=== PATIENT | female | born 1940 | race Caucasian/White ===

== ENCOUNTER 2020-08-07 08:58 | Inpatient (IN) ==
[2020-08-07] MEDS ORDERED: NORMAL SALINE 1,000 ML IV ONE ×2 (09:21→10:46)
[2020-08-07 09:42] LABS: Hematocrit 35.1 % (37.0-47.0); Hemoglobin 12.2 gm/dL (12.5-16.0); Mean Cell Volume 80.1 fl (78-100); Mean Corpuscular Hemoglobin 27.9 pg (27-31); Mean Corpuscular Hgb Conc 34.8 g/dl (32-36); Mean Platelet Volume 8.3 fl (8-12.5); Neutrophil # 8.8 K/mm3 (1.3-6.0); Neutrophil % 78.3 % (42-75.0); Platelet Count 340 K/mm3 (150-450); Red Blood Count 4.38 M/mm3 (4.2-5.4); Red Cell Distribution Width 13.3 % (11.5-14.0); White Blood Count 11.2 K/mm3 (4.0-10.5)
[2020-08-07 10:01] LABS: Urine Appearance Clear (CLEAR); Urine Bilirubin Negative (NEGATIVE); Urine Blood 5 /ul (NEGATIVE); Urine Color Yellow; Urine Ketone Negative (NEGATIVE); Urine Nitrite Negative (NEGATIVE); Urine Protein 30 mg/dL (NEGATIVE); Urine Specific Gravity 1.015 SP.GR. (1.005-1.010); Urine Urobilinogen Normal (NORMAL); Urine pH 7.5 pH (5.0-7.0)
[2020-08-07 10:02] LABS: Urine Bacteria None Seen; Urine RBC None Seen /hpf (0-5); Urine WBC None Seen /hpf (0-5)
[2020-08-07 10:02] LABS: Troponin I 0.021 ng/mL (0.00-0.10)
[2020-08-07 10:07] LABS: Albumin * 3.3 gm/dl (3.4-5.0); BUN/Creatinine Ratio 12.9 (9.0-21.6); Bilirubin, Total 0.6 mg/dL (0.0-1.1); Ca. Corrected For Albumin 8.3 mg/dL (8.4-10.2); Calcium * 8.1 mg/dL (7.9-10.9); Carbon Dioxide 30.3 mmol/L (24-32.6); TSH * 1.206 uIU/mL (0.358-3.74); Total Protein 7.5 gm/dL (6.2-8.2)
[2020-08-07 10:15] LABS: Anion Gap 11.2 mmol/L (6.8-13.8)
[2020-08-07 10:21] LABS: Potassium 2.5 mmol/L (3.4-4.6)
--- NOTE | 2020-08-07 10:59 | ERNOTE ---
Medical Problem HPI - Narrative Date of Service: 08/07/20 - General Chief Complaint: General Assessment Time Seen by Provider: 08/07/20 09:13 Source: patient Exam Limitations: dementia - Immun/Allergies/Home Medications Immunizations: IMMUNIZATION HX Immunizations Up to Date Yes History of Influenza Vaccine Yes Hx Pneumococcal Vaccination Yes Allergies/Adverse Reactions: Allergies No Known Allergies Allergy (Verified 08/07/20 09:03) Home Medications: HOME MEDICATIONS omeprazole magnesium 20 mg capsule,delayed release 40 mg PO DAILY cap 10/07/18 [Last Taken Unknown] potassium chloride 10 mEq tablet,extended release 20 meq PO TID tab 10/07/18 [Last Taken Unknown] aspirin 81 mg tablet,delayed release 81 mg PO DAILY 10/13/18 [Last Taken Unknown] donepezil 5 mg tablet 5 mg PO DAILY #30 tab 01/13/19 [Last Taken Unknown] hydrochlorothiazide 25 mg tablet 25 mg PO DAILY #30 tab 01/13/19 [Last Taken Unknown] furosemide 40 mg tablet 40 mg PO DAILY PRN #90 tab 01/28/20 [Last Taken Unknown] amlodipine 10 mg tablet See Rx Instructions .ROUTE .COMPLEX #30 tab 07/14/20 [Last Taken Unknown] - History of Present History Narrative: Patient has known dementia which complaints Hx. Brought in for EMS for generalized weakness. Apparently rolled out of bed and could not get up. No head injury or trauma. She relats low back pain that is always there. Denies any other new or acute pains. EMS felt she was dehydrated and initiated IV fluids. Timing: constant Severity: moderate Modifying Factors - (Improves): Present: other - nothing Modifying Factors - (Worsens): Present: other - nothing Review of Systems - Narrative Narrative: ROS unobtainable in entirety due to dementia Medical History (Last Reviewed 08/07/20 @ 10:55 by Farhad Burns MD) Vertigo, post-stroke (Resolved) Onset Date: Unknown Urinary frequency (Acute) Onset Date: Unknown Stress due to illness of family member (Acute) Onset Date: Unknown Right knee pain (Chronic) Onset Date: Unknown Neurogenic bladder (Acute) Onset Date: Unknown Incomplete bladder emptying (Acute) Onset Date: Unknown Hypertension (Chronic) Onset Date: Unknown Hyperlipidemia (Chronic) Onset Date: Unknown Hyperglycemia (Acute) Onset Date: Unknown Heart murmur (Acute) Onset Date: Unknown Goiter (Acute) Onset Date: Unknown GERD (gastroesophageal reflux disease) (Chronic) Onset Date: Unknown Fatigue (Acute) Onset Date: Unknown 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) Onset Date: Unknown Left CVA (cerebral vascular accident) (Resolved) Onset Date: Unknown Chest wall pain (Acute) Onset Date: Unknown Morales's esophagus (Acute) Onset Date: Unknown Asthma (Chronic) Onset Date: Unknown Herpes zoster Onset Date: Unknown Surgical History: Surgical History (Last Reviewed 08/07/20 @ 10:55 by Farhad Burns MD) Core biopsy left breast Onset Date: Unknown History of bladder suspension procedure Onset Date: ~1999 and sling History of esophagogastroduodenoscopy (EGD) Onset Date: ~09/11/05 Hx of section Onset Date: Unknown Hx of colonoscopy Onset Date: Unknown 12/29/09; 03/22/15 Hx of hysterectomy Onset Date: ~1974 Hx of mastectomy Onset Date: ~12/10/12 Left Hx of thyroidectomy Onset Date: ~1987 Plication of bladder Onset Date: Unknown Family History: Family History (Last Reviewed 08/07/20 @ 10:55 by Farhad Burns MD) Mother Hypertension Thyroid disorder Colon cancer Grandmother Colon cancer Maternal Uncle Carcinoma in situ Social History: (Last Reviewed 08/07/20 @ 10:55 by Farhad Burns MD) Social History: adopted: No foster care: No senior care: No Marital status: lives independently: No household members: spouse caregiver/support person: No current occupational status: retired Highest level of school completed/degree received: high school graduate Service: No Tobacco: Smoking Status: Never smoker Alcohol: alcohol intake: former details: 1-2 times/yr Substance Use: substance use type: does not use Dietary Habits: caffeine: Yes Personal Safety: victim of physical abuse: No victim of emotional abuse: No victim of sexual abuse: No Physical Exam - Physical Exam General Appearance: Present: alert, no apparent distress Head Exam: Present: normal inspection, no evidence of injury. Absent: Wolf's Sign, raccoon eyes Eye Exam: Normal inspection: bilateral, PERRL: bilateral Ears, Nose, Throat: Present: dry mucous membranes Neck: Present: normal inspection. Absent: tender posterior midline Respiratory: Present: no respiratory distress, normal breath sounds, no accessory muscle use, lungs clear Cardiovascular/Chest: Present: regular rate, rhythm, normal peripheral pulses Gastrointestinal/Abdominal: Present: normal bowel sounds, nontender, nondistended, soft Back Exam: Present: other - difficult exam but no clear CVA tendenress Extremity Exam: Present: other - no deformity Neurological Exam: Present: alert, other - generalized weakness noted, no acute unilateral focal motor or sensory deficits Skin Exam: Present: normal color, warm/dry Progress - Results and Orders Patient's Lab Results:: I have reviewed the patient's lab results. - Vital Signs Patient's Vital Signs:: I have reviewed the patient's vital signs. Vital Signs: Vital Signs 08/07/20 08:58 08/07/20 10:15 Temperature 36.8 C Pulse Rate 102 H 98 Respiratory Rate 16 18 Blood Pressure 151/58 H 138/53 O2 Sat by Pulse Oximetry 95 96 - EKG EKG #1 EKG read: Interp. by me EKG Comments: Sinus tachycardia rate 100. Non-specific ST/T wave changes, no STEMI noted - X-Ray X-Ray #1 X-Ray: chest Interpretation: Interp. by me X-ray Comments: No real time radiology reads. I personally reviewed CXR image, no STMI noted - Progress/Reassessment Chief Complaint: General Assessment Progress Note-Subjective: 08/07/20 10:56 Patient has significantly low potassium and magnesium which is likely causing her generalized weakness. She is dehydrated. IV Fluids given, IV potassium and IV Magnesium. I do not see an indication for head CT at this time. Discussed with Dr Hayward who will admit. Departure Clinical Impression: Generalized weakness, Hypomagnesemia, Hypokalemia, Dehydration - Departure Disposition: Still a patient Condition: Stable Referrals: Ginette Hayward DO [Primary Care Provider] -
[2020-08-07] MEDS ORDERED: MAGNESIUM SULFATE 8 MEQ in DEXTROSE 5 % IN WATER 50 ML IV ONE ×2 (11:00)
[2020-08-07] MEDS: POTASSIUM CHLORIDE IN WATER 100 ML IV SCH ×7 (11:03→23:25)
--- NOTE | 2020-08-07 13:24 | HP ---
Chief Complaint - Chief Complaint Date of Service: 08/07/20 Time of Service: 13:24 Chief Complaint: weakness History of Present Illness: Patient with history of dementia presents to the ER after having some weakness at home. Her reports her weakness has been slowly progressing over the last few months. He denies recent illness or medication changes. He reports that she has been taking her prescribed potassium. Work-up in the ER shows hypokalemia with a potassium of 2.5, and hypomagnesemia with a magnesium of 1.0. Her glucose is high at 207, but she does not have a history of diabetes. She is admitted for electrolyte replacement and physical therapy evaluation. Medical History (Last Reviewed 08/07/20 @ 10:55 by Farhad Burns MD) Vertigo, post-stroke (Resolved) Onset Date: Unknown Urinary frequency (Acute) Onset Date: Unknown Stress due to illness of family member (Acute) Onset Date: Unknown Right knee pain (Chronic) Onset Date: Unknown Neurogenic bladder (Acute) Onset Date: Unknown Incomplete bladder emptying (Acute) Onset Date: Unknown Hypertension (Chronic) Onset Date: Unknown Hyperlipidemia (Chronic) Onset Date: Unknown Hyperglycemia (Acute) Onset Date: Unknown Heart murmur (Acute) Onset Date: Unknown Goiter (Acute) Onset Date: Unknown GERD (gastroesophageal reflux disease) (Chronic) Onset Date: Unknown Fatigue (Acute) Onset Date: Unknown 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) Onset Date: Unknown Left CVA (cerebral vascular accident) (Resolved) Onset Date: Unknown Chest wall pain (Acute) Onset Date: Unknown Morales's esophagus (Acute) Onset Date: Unknown Asthma (Chronic) Onset Date: Unknown Herpes zoster Onset Date: Unknown Surgical History: Surgical History (Last Reviewed 08/07/20 @ 10:55 by Farhad Burns MD) Core biopsy left breast Onset Date: Unknown History of bladder suspension procedure Onset Date: ~1999 and sling History of esophagogastroduodenoscopy (EGD) Onset Date: ~09/11/05 Hx of section Onset Date: Unknown Hx of colonoscopy Onset Date: Unknown 12/29/09; 03/22/15 Hx of hysterectomy Onset Date: ~1974 Hx of mastectomy Onset Date: ~12/10/12 Left Hx of thyroidectomy Onset Date: ~1987 Plication of bladder Onset Date: Unknown Family History: Family History (Last Reviewed 08/07/20 @ 10:55 by Farhad Burns MD) Mother Hypertension Thyroid disorder Colon cancer Grandmother Colon cancer Maternal Uncle Carcinoma in situ Social History: (Last Reviewed 08/07/20 @ 10:55 by Farhad Burns MD) Social History: adopted: No foster care: No alf: No Marital status: lives independently: No household members: spouse caregiver/support person: No current occupational status: retired Highest level of school completed/degree received: high school graduate Service: No Tobacco: Smoking Status: Never smoker Alcohol: alcohol intake: former details: 1-2 times/yr Substance Use: substance use type: does not use Dietary Habits: caffeine: Yes Personal Safety: victim of physical abuse: No victim of emotional abuse: No victim of sexual abuse: No Review Of Systems (GEN) - Review of Systems Generalized/Overall Review: Present: No Symptoms Reported, Weakness - Per . Absent: Fever Respiratory: Absent: Shortness of Breath Cardiac: Absent: Chest Pain, Edema Abdominal: Present: No Symptoms Reported Genitourinary: Present: No Symptoms Reported Musculoskeletal: Present: No Symptoms Reported Skin: Present: No Symptoms Reported Immunizations: IMMUNIZATION HX Immunizations Up to Date Yes History of Influenza Vaccine Yes Hx Pneumococcal Vaccination Yes Allergies/Adverse Reactions: Allergies Allergy/AdvReac Type Severity Reaction Status Date / Time No Known Allergies Allergy Verified 08/07/20 09:03 Home Medications: HOME MEDICATIONS omeprazole magnesium 20 mg capsule,delayed release 40 mg PO DAILY cap 10/07/18 [Last Taken Unknown] potassium chloride 10 mEq tablet,extended release 20 meq PO TID tab 10/07/18 [Last Taken Unknown] aspirin 81 mg tablet,delayed release 81 mg PO DAILY 10/13/18 [Last Taken Unknown] amlodipine 10 mg tablet See Rx Instructions .ROUTE .COMPLEX #30 tab 07/14/20 [Last Taken Unknown] Exam - Exam Vital Signs: Vital Signs - Last Taken Temp 36.6 C 08/07/20 12:47 Pulse 95 08/07/20 12:47 Resp 23 H 08/07/20 12:47 BP 131/52 08/07/20 12:47 Pulse Ox 96 08/07/20 12:47 Constitutional: Present: Alert, Cooperative, No distress, Elderly. Absent: Oriented x3 - Oriented to self Respiratory: Present: normal breath sounds, no respiratory distress Cardiovascular/Chest: Present: regular rate, rhythm Abdomen: Present: soft Extremity: Absent: lower extremity edema Eye contact: Present: cooperative, good eye contact Diagnostic Studies: Abnormal Lab Results 08/07/20 08/07/20 08/07/20 Range/Units 09:11 09:23 09:23 WBC 11.2 H (4.0-10.5) K/mm3 Hgb 12.2 L (12.5-16.0) gm/dL Hct 35.1 L (37.0-47.0) % Immature Gran # (Auto) 0.04 H (0.000-0.0310) K/mm3 Neutrophils % 78.3 H (42-75.0) % Lymphocytes % 14.3 L (20-51) % Neutrophils # 8.8 H (1.3-6.0) K/mm3 Potassium 2.5 L (3.4-4.6) mmol/L Chloride 95 L (97-106) mmol/L Random Glucose 207 H (70-110) mg/dL Calcium Adj for Albumin 8.3 L (8.4-10.2) mg/dL Magnesium (1.2-2.8) mg/dL Albumin 3.3 L (3.4-5.0) gm/dl Urine Protein 30 H (NEGATIVE) mg/dL Urine Blood 5 H (NEGATIVE) /ul 08/07/20 Range/Units 09:23 WBC (4.0-10.5) K/mm3 Hgb (12.5-16.0) gm/dL Hct (37.0-47.0) % Immature Gran # (Auto) (0.000-0.0310) K/mm3 Neutrophils % (42-75.0) % Lymphocytes % (20-51) % Neutrophils # (1.3-6.0) K/mm3 Potassium (3.4-4.6) mmol/L Chloride (97-106) mmol/L Random Glucose (70-110) mg/dL Calcium Adj for Albumin (8.4-10.2) mg/dL Magnesium 1.0 L (1.2-2.8) mg/dL Albumin (3.4-5.0) gm/dl Urine Protein (NEGATIVE) mg/dL Urine Blood (NEGATIVE) /ul Laboratory Results WBC 11.2 K/mm3 (4.0-10.5) H 08/07/20 09:23 RBC 4.38 M/mm3 (4.2-5.4) 08/07/20 09:23 Hgb 12.2 gm/dL (12.5-16.0) L 08/07/20 09:23 Hct 35.1 % (37.0-47.0) L 08/07/20 09:23 MCV 80.1 fl (78-100) 08/07/20 09:23 MCH 27.9 pg (27-31) 08/07/20 09: MCHC 34.8 g/dl (32-36) 08/07/20 09: RDW 13.3 % (11.5-14.0) 08/07/20 09: Plt Count 340 K/mm3 (150-450) 08/07/20 09: MPV 8.3 fl (8-12.5) 08/07/20 09:23 Immature Gran % (Auto) 0.40 % (0.001-0.429) 08/07/20 09: Immature Gran # (Auto) 0.04 K/mm3 (0.000-0.0310) H 08/07/20 09:23 Neutrophils % 78.3 % (42-75.0) H 08/07/20 09:23 Lymphocytes % 14.3 % (20-51) L 08/07/20 09: Monocytes % 6.4 % (0.0-9) 08/07/20 09: Eosinophils % 0.3 % (0.0-3.0) 08/07/20 09: Basophils % 0.3 % (0.0-1.0) 08/07/20 09: Nucleated RBC % 0.0 k/mm3 (0-1) 08/07/20 09: Neutrophils # 8.8 K/mm3 (1.3-6.0) H 08/07/20 09:23 Lymphocytes # 1.61 k/mm3 (1.5-3.5) 08/07/20 09: Monocytes # 0.7 k/mm3 (0.0-1.0) 08/07/20 09: Eosinophils # 0.0 k/mm3 (0.0-0.7) 08/07/20 09: Absolute Basophils 0.0 k/mm3 (0.0-0.1) 08/07/20 09:23 Sodium 134 mmol/L (132-142) 08/07/20 09:23 Plasma Sodium 136 mmol/L (130-142) 08/07/20 09:23 Potassium 2.5 mmol/L (3.4-4.6) L 08/07/20 09:23 Chloride 95 mmol/L (97-106) L 08/07/20 09:23 Carbon Dioxide 30.3 mmol/L (24-32.6) 08/07/20 09:23 Anion Gap 11.2 mmol/L (6.8-13.8) 08/07/20 09:23 BUN 8 mg/dL (3-23) 08/07/20 09:23 Creatinine 0.62 mg/dL (0.4-1.4) 08/07/20 09:23 Est GFR (Non-Af Amer) 98 mL/min (60-130) 08/07/20 09:23 BUN/Creatinine Ratio 12.9 (9.0-21.6) 08/07/20 09:23 Random Glucose 207 mg/dL (70-110) H 08/07/20 09:23 Lactic Acid, Venous 1.3 mmol/L (0.4-2.0) 08/07/20 09:23 Calcium 8.1 mg/dL (7.9-10.9) 08/07/20 09:23 Calcium Adj for Albumin 8.3 mg/dL (8.4-10.2) L 08/07/20 09:23 Magnesium 1.0 mg/dL (1.2-2.8) L 08/07/20 09:23 Total Bilirubin 0.6 mg/dL (0.0-1.1) 08/07/20 09:23 AST 20 U/L (0-48) 08/07/20 09:23 ALT 22 U/L (19-67) 08/07/20 09:23 Alkaline Phosphatase 99 U/L (50-170) 08/07/20 09:23 Ammonia Less than 17.0 mcmol/L (11-35) 08/07/20 09:23 Troponin I 0.021 ng/mL (0.00-0.10) 08/07/20 09:23 Total Protein 7.5 gm/dL (6.2-8.2) 02/07/21 09:23 Albumin 3.3 gm/dl (3.4-5.0) L 08/07/20 09:23 TSH 1.206 uIU/mL (0.358-3.74) 08/07/20 09:23 Urine Color Yellow 08/07/20 09:11 Urine Appearance Clear (CLEAR) 08/07/20 09:11 Urine pH 7.5 pH (5.0-7.0) 08/07/20 09:11 Ur Specific [place] 1.015 SP.GR. (1.005-1.010) 08/07/20 09:11 Urine Protein 30 mg/dL (NEGATIVE) H 08/07/20 09:11 Urine Glucose (UA) Negative mg/dL (NEGATIVE) 08/07/20 09:11 Urine Ketones Negative mg/dL (NEGATIVE) 08/07/20 09:11 Urine Blood 5 /ul (NEGATIVE) H 08/07/20 09:11 Urine Nitrate Negative (NEGATIVE) 08/07/20 09:11 Urine Bilirubin Negative mg/dl (NEGATIVE) 08/07/20 09:11 Urine Urobilinogen Normal EU/dl (NORMAL) 08/07/20 09:11 Ur Leukocyte Esterase Negative /ul (NEGATIVE) 08/07/20 09:11 Urine RBC None seen /hpf (0-5) 08/07/20 09:11 Urine WBC None seen /hpf (0-5) 08/07/20 09:11 Ur Epithelial Cells None seen /hpf (0-5) 08/07/20 09:11 Urine Bacteria None seen (NONE) 08/07/20 09:11 Urine Culture Comments No culture indicated 08/07/20 09:11 SARS-CoV-2 (PCR) Not detected (NotDetected) 08/07/20 10:32 Assessment/Plan - Narrative Narrative: Her denies recent illness or medication changes that could have prompted her electrolyte imbalance. However he is not clear on the actual medicines she takeshe gives her the medicines that come in the mail. Her only medication that has been renewed in the last 6 months has been her 10 mg of amlodipine. Potassium of 2.5 and magnesium of 1.0 on admission. Will administer IV potassium and magnesium and recheck in the morning. Physical therapy consult has been ordered to assess her ability to ambulate. He feels like she has been deteriorating over the last several months. She does have some moderate dementia. If he is unable to care for her at home, I recommend alf placement on discharge. - Assessment/Plan (1) Generalized weakness Problem: Acute (2) Hypomagnesemia Problem: Acute (3) Hypokalemia Problem: Acute (4) Moderate dementia Problem: Chronic (5) Hypertension Problem: Chronic (6) Hyperglycemia Problem: Acute (7) Heart murmur Problem: Acute (8) GERD (gastroesophageal reflux disease) Problem: Chronic (9) CVA (cerebral vascular accident) Problem: Resolved
[2020-08-07] MEDS: POTASSIUM CHLORIDE 20 MEQ TABLET.SA PO SCH (16:54)
[2020-08-07 18:55] LABS: Albumin * 2.8 gm/dl (3.4-5.0); BUN/Creatinine Ratio 9.4 (9.0-21.6); Bilirubin, Total 0.5 mg/dL (0.0-1.1); Ca. Corrected For Albumin 8.4 mg/dL (8.4-10.2); Calcium * 7.8 mg/dL (7.9-10.9); Carbon Dioxide 29.3 mmol/L (24-32.6); Total Protein 6.6 gm/dL (6.2-8.2)
[2020-08-07 19:04] LABS: Potassium 2.3 mmol/L (3.4-4.6)
[2020-08-07] MEDS ORDERED: MAGNESIUM SULFATE 4 MEQ/ML VIAL IV ONE (19:08)
[2020-08-07] MEDS ORDERED: MAGNESIUM SULFATE IV ONE (19:45)
[2020-08-07] MEDS ORDERED: WATER IV ONE (19:45)
[2020-08-07] MEDS ORDERED: MAGNESIUM SULFATE IN WATER IV ONE (20:10)
[2020-08-08] MEDS: POTASSIUM CHLORIDE IN WATER 100 ML IV SCH ×5 (00:53→12:22)
[2020-08-08 07:04] LABS: Albumin * 3.4 gm/dl (3.4-5.0); Anion Gap 12.5 mmol/L (6.8-13.8); BUN/Creatinine Ratio 5.3 (9.0-21.6); Bilirubin, Total 0.8 mg/dL (0.0-1.1); Ca. Corrected For Albumin 8.9 mg/dL (8.4-10.2); Calcium * 8.7 mg/dL (7.9-10.9); Carbon Dioxide 29.8 mmol/L (24-32.6); Magnesium 1.4 mg/dL (1.2-2.8); Total Protein 7.8 gm/dL (6.2-8.2)
[2020-08-08 07:15] LABS: Potassium 2.3 mmol/L (3.4-4.6)
[2020-08-08] MEDS: POTASSIUM CHLORIDE 20 MEQ TABLET.SA PO SCH ×2 (09:22→12:23)
[2020-08-08] MEDS: ASPIRIN 81 MG TABLET.DR PO SCH (09:22)
--- NOTE | 2020-08-08 10:30 | PN ---
Subjective - Date and Time Seen Date: 08/08/20 Time: 10:30 Subjective Narrative: She reports having some indigestion. Potassium still low this morning. She was up in the chair for my eval, and had eaten breakfast. Objective - Review of Systems Generalized/Overall Review: Reports: Weakness. Denies: Fever Respiratory: Denies: Shortness of Breath Cardiac: Denies: Chest Pain Abdominal: Reports: Other - indigestion Genitourinary Symptoms: Reports: No Symptoms Reported Musculoskeletal Complaints: Reports: No Symptoms Reported Neurological: Reports: No Symptoms Reported - Vitals Vitals: Last Vital Signs Temp 36.5 C 08/08/20 06:31 Pulse 104 H 08/08/20 06:31 Resp 16 08/08/20 06:31 BP 158/73 H 08/08/20 06:31 Pulse Ox 96 08/08/20 06:31 - Abnormal Lab Findings Abnormal Lab Findings: Abnormal Lab Results 08/07/20 08/07/20 08/08/20 Range/Units 09:23 18:39 06:22 Potassium 2.3 L* 2.3 L* (3.4-4.6) mmol/L Chloride 96 L (97-106) mmol/L BUN/Creatinine Ratio 5.3 L (9.0-21.6) Random Glucose 151 H 147 H (70-110) mg/dL Calcium 7.8 L (7.9-10.9) mg/dL Magnesium 1.0 L (1.2-2.8) mg/dL Albumin 2.8 L (3.4-5.0) gm/dl - Exam Constitutional: Present: Alert, Cooperative, Elderly Respiratory: Present: normal breath sounds, no respiratory distress Cardiovascular/Chest: Present: regular rate, rhythm Abdomen: Present: soft Extremity: Absent: lower extremity edema Appearance: Present: impaired insight Eye contact: Present: cooperative, good eye contact Assessment/Plan Plan Narrative: Potassium is still 2.3 after being given 120 mEq KCl via IV. Her magnesium was also low, which may be why it's been difficult to replace her potassium. Her magnesium is better this morning, at 1.4, so I anticipate her potassium will improve. She has dementia at baseline, and lives with her . They do not seem to know for sure which medicines she takes, only that she takes what comes in the mail. She denies recent vomiting or diarrhea. HCTZ was previously on her med list, but I have not filled that since 2019. Unclear source of her electrolyte abnormalities at this time. I anticipate similar problems will continue while she lives at home, and will need to discuss possible placement with her . He has called our office a few times for difficulty caring for her at home. Since her K+ is still low, she will need at least one additional night of hospitalization. - Problems/Diagnosis (1) Hypokalemia Problem: Acute (2) Generalized weakness Problem: Acute (3) Hypomagnesemia Problem: Acute (4) Moderate dementia Problem: Chronic (5) Hypertension Problem: Chronic (6) Hyperglycemia Problem: Acute (7) Heart murmur Problem: Acute (8) GERD (gastroesophageal reflux disease) Problem: Chronic (9) CVA (cerebral vascular accident) Problem: Resolved
[2020-08-08] MEDS ORDERED: CALCIUM CARBONATE 500 MG TAB.CHEW PO PRN (10:40)
[2020-08-08] MEDS: amLODIPine BESYLATE 10 MG TABLET PO SCH (13:35)
[2020-08-08] MEDS: PANTOPRAZOLE SODIUM 40 MG TABLET.EC PO SCH (13:36)
[2020-08-08 14:18] LABS: Anion Gap 12.5 mmol/L (6.8-13.8); BUN/Creatinine Ratio 12.7 (9.0-21.6); Calcium * 8.6 mg/dL (7.9-10.9); Carbon Dioxide 27.2 mmol/L (24-32.6); Estimated Creat Clear 48.3; Potassium 3.7 mmol/L (3.4-4.6)
[2020-08-09 06:48] LABS: Anion Gap 10.4 mmol/L (6.8-13.8); BUN/Creatinine Ratio 8.9 (9.0-21.6); Bilirubin, Total 0.6 mg/dL (0.0-1.1); Ca. Corrected For Albumin 8.7 mg/dL (8.4-10.2); Calcium * 8.2 mg/dL (7.9-10.9); Carbon Dioxide 28.8 mmol/L (24-32.6); Total Protein 6.9 gm/dL (6.2-8.2)
[2020-08-09 06:57] LABS: Potassium 2.2 mmol/L (3.4-4.6)
[2020-08-09] MEDS: PANTOPRAZOLE SODIUM 40 MG TABLET.EC PO SCH (06:58)
[2020-08-09] MEDS: POTASSIUM CHLORIDE IN WATER 100 ML IV SCH ×4 (07:22→11:06)
[2020-08-09 08:03] LABS: Hemoglobin A1C 6.7 % (3.80-5.60)
[2020-08-09] MEDS: amLODIPine BESYLATE 10 MG TABLET PO SCH (08:47)
[2020-08-09] MEDS: ENOXAPARIN SODIUM 40 MG/0.4 ML SYRG SC SCH (08:47)
[2020-08-09] MEDS: ASPIRIN 81 MG TABLET.DR PO SCH (08:47)
--- NOTE | 2020-08-09 08:58 | PN ---
Subjective - Date and Time Seen Date: 08/09/20 Time: 08:30 Subjective Narrative: Patient's potassium was 3.7 yesterday afternoon, but decreased to 2.2 this morning. She reports her indigestion is better. Objective - Review of Systems Generalized/Overall Review: Reports: Weakness Respiratory: Denies: Shortness of Breath Cardiac: Denies: Chest Pain Abdominal: Denies: Vomiting, Diarrhea Genitourinary Symptoms: Reports: No Symptoms Reported - Vitals Vitals: Last Vital Signs Temp 36.4 C 08/09/20 06:10 Pulse 110 H 08/09/20 08:47 Resp 18 08/09/20 06:10 BP 142/71 08/09/20 08:47 Pulse Ox 95 08/09/20 06:10 - Abnormal Lab Findings Abnormal Lab Findings: Abnormal Lab Results 08/08/20 08/09/20 08/09/20 Range/Units 13:59 06:15 06:15 Sodium 131 L (132-142) mmol/L Potassium 2.2 L* D (3.4-4.6) mmol/L Chloride 95 L 96 L (97-106) mmol/L BUN/Creatinine Ratio 8.9 L (9.0-21.6) Random Glucose 203 H D 138 H D (70-110) mg/dL Hemoglobin A1c 6.7 H (3.80-5.60) % Albumin 3.0 L (3.4-5.0) gm/dl - Exam Constitutional: Present: Alert, Cooperative, No distress, Elderly Respiratory: Present: normal breath sounds, no respiratory distress Cardiovascular/Chest: Present: regular rate, rhythm Abdomen: Present: Normal bowel sounds, distended Extremity: Absent: lower extremity edema Eye contact: Present: cooperative, good eye contact Assessment/Plan Plan Narrative: Patient's potassium improved to 3.7 yesterday afternoon, but again decreased to 2.2 this morning. Will again give an additional 40 mEq Kcl via IV. She has already received 120 mEq in the last 48 hours. will also increase her oral replacement to 40 mEq tid. She is not vomiting or having diarrhea, and does not use diuretics. Will check urine potassium-spot and 24 hour. Will recheck magnesium also. Her BP is controlled on 10 mg amlodipine, so I do not feel like she has hyperaldosteronism, but will check plasma aldosterone. - Problems/Diagnosis (1) Hypokalemia Problem: Acute (2) Generalized weakness Problem: Acute (3) Hypomagnesemia Problem: Acute (4) Moderate dementia Problem: Chronic (5) Hypertension Problem: Chronic (6) Hyperglycemia Problem: Acute (7) Heart murmur Problem: Acute (8) GERD (gastroesophageal reflux disease) Problem: Chronic (9) CVA (cerebral vascular accident) Problem: Resolved
[2020-08-09] MEDS: MAGNESIUM OXIDE 400 MG TABLET PO SCH (11:11)
[2020-08-09] MEDS: INSULIN LISPRO 100 UNITS/ML VIAL SC SCH ×3 (11:51→20:00)
[2020-08-09] MEDS: POTASSIUM CHLORIDE 20 MEQ TABLET.SA PO SCH ×2 (12:13→16:51)
[2020-08-09 17:54] LABS: Anion Gap 16.7 mmol/L (6.8-13.8); BUN/Creatinine Ratio 18.8 (9.0-21.6); Calcium * 9.1 mg/dL (7.9-10.9); Carbon Dioxide 24.8 mmol/L (24-32.6); Estimated Creat Clear 53.6; Potassium 3.5 mmol/L (3.4-4.6)
[2020-08-10 06:34] LABS: Albumin * 2.8 gm/dl (3.4-5.0); Anion Gap 9.7 mmol/L (6.8-13.8); BUN/Creatinine Ratio 13.1 (9.0-21.6); Bilirubin, Total 0.5 mg/dL (0.0-1.1); Ca. Corrected For Albumin 8.9 mg/dL (8.4-10.2); Calcium * 8.3 mg/dL (7.9-10.9); Carbon Dioxide 28.2 mmol/L (24-32.6); Magnesium 1.1 mg/dL (1.2-2.8); Potassium 2.9 mmol/L (3.4-4.6); Total Protein 6.7 gm/dL (6.2-8.2)
[2020-08-10] MEDS: INSULIN LISPRO 100 UNITS/ML VIAL SC SCH ×4 (06:44→20:56)
[2020-08-10] MEDS: PANTOPRAZOLE SODIUM 40 MG TABLET.EC PO SCH (07:18)
[2020-08-10] MEDS ORDERED: MAGNESIUM SULFATE 4 MEQ/ML VIAL IV ONE (07:53)
[2020-08-10] MEDS ORDERED: MAGNESIUM SULFATE 8 MEQ in DEXTROSE 5 % IN WATER 50 ML IV ONE ×2 (08:15)
[2020-08-10] MEDS: ASPIRIN 81 MG TABLET.DR PO SCH (08:31)
[2020-08-10] MEDS: POTASSIUM CHLORIDE 20 MEQ TABLET.SA PO SCH ×2 (08:31→12:24)
[2020-08-10] MEDS: MAGNESIUM OXIDE 400 MG TABLET PO SCH (08:31)
[2020-08-10] MEDS: amLODIPine BESYLATE 10 MG TABLET PO SCH (08:31)
[2020-08-10] MEDS: ENOXAPARIN SODIUM 40 MG/0.4 ML SYRG SC SCH (08:37)
[2020-08-10] MEDS: POTASSIUM CHLORIDE IN WATER 100 ML IV SCH ×4 (08:37→13:55)
--- NOTE | 2020-08-10 10:05 | PN ---
Subjective - Date and Time Seen Date: 08/10/20 Time: 07:50 Subjective Narrative: She has been incontinent. She isn't sure if she feels stronger than she did on admission. Objective - Review of Systems Generalized/Overall Review: Reports: Weakness Cardiac: Denies: Chest Pain, Edema Abdominal: Denies: Vomiting, Diarrhea Genitourinary Symptoms: Reports: Incontinent - Vitals Vitals: Last Vital Signs Temp 36.9 C 08/10/20 01:55 Pulse 96 08/10/20 08:31 Resp 20 08/10/20 01:55 BP 146/71 08/10/20 08:31 Pulse Ox 98 08/10/20 01:55 - Abnormal Lab Findings Abnormal Lab Findings: Abnormal Lab Results 08/09/20 08/10/20 Range/Units 17:27 06:00 Sodium 131 L (132-142) mmol/L Potassium 2.9 L (3.4-4.6) mmol/L Chloride 93 L (97-106) mmol/L Anion Gap 16.7 H (6.8-13.8) mmol/L Random Glucose 160 H 148 H (70-110) mg/dL Magnesium 1.1 L (1.2-2.8) mg/dL Albumin 2.8 L (3.4-5.0) gm/dl - Exam Constitutional: Present: Alert, Cooperative, Elderly Respiratory: Present: lungs clear, normal breath sounds, no respiratory distress Cardiovascular/Chest: Present: tachycardia Abdomen: Present: distended - she reports this is her baseline Extremity: Absent: lower extremity edema Appearance: Present: impaired insight, impaired recent memory Eye contact: Present: cooperative, good eye contact Assessment/Plan Plan Narrative: She has not been vomiting or having diarrhea, and does not use diuretics. Etiology uncertain at this time, but suspecting renal tubular acidosis. She has received 160 mEq KCl via IV, and her home dose was continued. There is a discrepancy in her chart because I can not find documentation that the home dose was an active medication and administered. Verified with pharmacy that she'd been getting 20 mg tid from 08/07 to 08/10. 40 mEq Kdur tid started yesterday. She's been getting magnesium both IV and po also. Urine pH and urine potassium are high. Will recheck UA today to see her pH. Unfortunately, nephrology is not available at our facility. May need to discuss transfer if unable to correct potassium soon. - Problems/Diagnosis (1) Hypokalemia Problem: Acute (2) Generalized weakness Problem: Acute (3) Hypomagnesemia Problem: Acute (4) Diabetes mellitus Problem: Acute Narrative: newly diagnosed this admission. With her difficulty managing electrolytes, will not add additional meds at this time. (5) Moderate dementia Problem: Chronic (6) Hypertension Problem: Chronic (7) Hyperglycemia Problem: Acute (8) Heart murmur Problem: Acute (9) GERD (gastroesophageal reflux disease) Problem: Chronic (10) CVA (cerebral vascular accident) Problem: Resolved
[2020-08-10 12:29] LABS: Urine Bilirubin Negative (NEGATIVE); Urine Blood Negative /ul (NEGATIVE); Urine Ketone Negative (NEGATIVE); Urine Nitrite Negative (NEGATIVE); Urine Protein 30 mg/dL (NEGATIVE)
[2020-08-10 12:52] LABS: Urine Appearance Cloudy (CLEAR); Urine Color Yellow
[2020-08-10 12:53] LABS: Urine Bacteria 3+; Urine RBC None Seen /hpf (0-5)
[2020-08-10] MEDS: CIPROFLOXACIN HCL 250 MG TABLET PO SCH (13:56)
[2020-08-10 15:22] LABS: Anion Gap 11.7 mmol/L (6.8-13.8); BUN/Creatinine Ratio 16.2 (9.0-21.6); Calcium * 8.5 mg/dL (7.9-10.9); Carbon Dioxide 25.6 mmol/L (24-32.6); Estimated Creat Clear 50.4; Magnesium 1.5 mg/dL (1.2-2.8); Potassium 5.3 mmol/L (3.4-4.6)
[2020-08-11 06:53] LABS: Albumin * 2.9 gm/dl (3.4-5.0); BUN/Creatinine Ratio 14.5 (9.0-21.6); Bilirubin, Total 0.4 mg/dL (0.0-1.1); Ca. Corrected For Albumin 8.7 mg/dL (8.4-10.2); Calcium * 8.1 mg/dL (7.9-10.9); Carbon Dioxide 26.6 mmol/L (24-32.6); Magnesium 1.2 mg/dL (1.2-2.8); Potassium 2.6 mmol/L (3.4-4.6); Total Protein 6.8 gm/dL (6.2-8.2)
[2020-08-11] MEDS: PANTOPRAZOLE SODIUM 40 MG TABLET.EC PO SCH (07:31)
[2020-08-11] MEDS: ENOXAPARIN SODIUM 40 MG/0.4 ML SYRG SC SCH (08:19)
[2020-08-11] MEDS: INSULIN LISPRO 100 UNITS/ML VIAL SC SCH ×4 (08:21→20:44)
[2020-08-11] MEDS: ASPIRIN 81 MG TABLET.DR PO SCH (08:23)
[2020-08-11] MEDS: CIPROFLOXACIN HCL 250 MG TABLET PO SCH ×2 (08:24→20:44)
[2020-08-11] MEDS: MAGNESIUM OXIDE 400 MG TABLET PO SCH ×2 (08:25→20:44)
[2020-08-11] MEDS: amLODIPine BESYLATE 10 MG TABLET PO SCH (08:26)
[2020-08-11] MEDS ORDERED: MAGNESIUM SULFATE IN WATER 50 ML IV ONE (08:42)
--- NOTE | 2020-08-11 08:46 | PN ---
Subjective - Date and Time Seen Date: 08/11/20 Time: 08:15 Subjective Narrative: Is tolerating the large KDur tablets. No vomiting or diarrhea. Can walk to the bathroom with assistance. Objective - Review of Systems Generalized/Overall Review: Reports: Weakness Respiratory: Denies: Shortness of Breath Cardiac: Denies: Chest Pain Abdominal: Denies: Vomiting, Diarrhea Genitourinary Symptoms: Reports: No Symptoms Reported - Vitals Vitals: Last Vital Signs Temp 36.7 C 08/11/20 06:53 Pulse 99 08/11/20 08:26 Resp 20 08/11/20 06:53 BP 125/70 08/11/20 08:26 Pulse Ox 96 08/11/20 06:53 - Abnormal Lab Findings Abnormal Lab Findings: Abnormal Lab Results 08/10/20 08/10/20 08/10/20 Range/Units 10:55 10:55 15:06 Sodium 129 L (132-142) mmol/L Potassium 5.3 H D (3.4-4.6) mmol/L Random Glucose 173 H (70-110) mg/dL Albumin (3.4-5.0) gm/dl Urine Protein 30 H (NEGATIVE) mg/dL Urine Glucose (UA) 100 H (NEGATIVE) mg/dL Urine Urobilinogen 2.0 H (NORMAL) EU/dl Ur Leukocyte Esterase 100 H (NEGATIVE) /ul Urine WBC 10-25 H (0-5) /hpf Urine Bacteria 3+ H (NONE) Ur Random Potassium 83.1 H (12-62) mmol/L 08/11/20 Range/Units 06:34 Sodium (132-142) mmol/L Potassium 2.6 L D (3.4-4.6) mmol/L Random Glucose 132 H (70-110) mg/dL Albumin 2.9 L (3.4-5.0) gm/dl Urine Protein (NEGATIVE) mg/dL Urine Glucose (UA) (NEGATIVE) mg/dL Urine Urobilinogen (NORMAL) EU/dl Ur Leukocyte Esterase (NEGATIVE) /ul Urine WBC (0-5) /hpf Urine Bacteria (NONE) Ur Random Potassium (12-62) mmol/L - Exam Constitutional: Present: Alert, Cooperative, Other - up in chair eating breakfast, Elderly Respiratory: Present: lungs clear, normal breath sounds Cardiovascular/Chest: Present: tachycardia Abdomen: Present: soft, distended Extremity: Absent: lower extremity edema Appearance: Present: impaired recent memory Eye contact: Present: cooperative, good eye contact Cauti Physician Documentation - Urinary Catheter Management Urethral (Gee) Date of Insertion: 08/11/20 Time of Insertion: 09:37 Assessment/Plan Plan Narrative: She continues to have hypokalemia despite IV and po replacement. K+ was 2.6 this morning. Discussed with nephrology at [facility], who suspects ppi use causing profound hypomagnesemia. Will obtain 24 hour urine potassium. Will double her IV magnesium replacement today to 2 g, and will also double her IV K+ replacement. Continue 40 mEq KDur po tid. will double her magnesium hydroxide dose. Stopped pantoprazole. Her urine yesterday was positive for >100,000 cfu gram negative bacilli, so cipro was started. She is not complaining of symptoms, and symptoms are needed to diagnose a positive UTI. However with her dementia, I am not sure she would have the capacity. - Problems/Diagnosis (1) Hypokalemia Problem: Acute (2) Hypomagnesemia Problem: Acute (3) Generalized weakness Problem: Acute (4) Diabetes mellitus Problem: Acute (5) Moderate dementia Problem: Chronic (6) Hypertension Problem: Chronic (7) Hyperglycemia Problem: Acute (8) Heart murmur Problem: Chronic (9) GERD (gastroesophageal reflux disease) Problem: Chronic (10) CVA (cerebral vascular accident) Problem: Resolved (11) Hyponatremia Problem: Acute Narrative: intermittent this hospitalization. she is receiving IV fluids with her electrolyte replacement. (12) Urinary tract infection Problem: Suspected
[2020-08-11] MEDS: POTASSIUM CHLORIDE 20 MEQ TABLET.SA PO SCH ×3 (09:06→16:50)
[2020-08-11] MEDS: POTASSIUM CHLORIDE IN WATER 100 ML IV SCH ×8 (10:02→17:27)
[2020-08-12 07:03] LABS: Albumin * 3.1 gm/dl (3.4-5.0); Anion Gap 13.9 mmol/L (6.8-13.8); BUN/Creatinine Ratio 13.5 (9.0-21.6); Bilirubin, Total 0.4 mg/dL (0.0-1.1); Calcium * 8.6 mg/dL (7.9-10.9); Carbon Dioxide 27.7 mmol/L (24-32.6); Magnesium 1.3 mg/dL (1.2-2.8); Potassium 2.6 mmol/L (3.4-4.6); Total Protein 7.2 gm/dL (6.2-8.2)
[2020-08-12] MEDS: INSULIN LISPRO 100 UNITS/ML VIAL SC SCH ×4 (07:39→20:16)
[2020-08-12] MEDS ORDERED: MAGNESIUM SULFATE IN WATER 50 ML IV ONE (08:18)
--- NOTE | 2020-08-12 08:20 | PN ---
Subjective - Date and Time Seen Date: 08/12/20 Time: 08:40 Subjective Narrative: She reports feeling well, and is eating well. Is able to take the KDur tablets. Objective - Review of Systems Generalized/Overall Review: Denies: Weakness Respiratory: Denies: Shortness of Breath Cardiac: Denies: Chest Pain Abdominal: Denies: Vomiting, Diarrhea Genitourinary Symptoms: Reports: No Symptoms Reported, Other - stroud in place for 24 hour urine - Vitals Vitals: Last Vital Signs Temp 36.5 C 08/12/20 06:21 Pulse 98 08/12/20 06:21 Resp 18 08/12/20 06:21 BP 135/70 08/12/20 06:21 Pulse Ox 95 08/12/20 06:21 - Abnormal Lab Findings Abnormal Lab Findings: Abnormal Lab Results 08/12/20 Range/Units 06:30 Potassium 2.6 L (3.4-4.6) mmol/L Chloride 96 L (97-106) mmol/L Anion Gap 13.9 H (6.8-13.8) mmol/L Random Glucose 140 H (70-110) mg/dL Albumin 3.1 L (3.4-5.0) gm/dl - Exam Constitutional: Present: Alert, Cooperative, No distress, Elderly Respiratory: Present: lungs clear, normal breath sounds Cardiovascular/Chest: Present: tachycardia Abdomen: Present: soft, distended Extremity: Absent: lower extremity edema Eye contact: Present: cooperative, good eye contact Cauti Physician Documentation - Urinary Catheter Management Urethral ([place]) Date of Insertion: 08/11/20 Time of Insertion: 09:37 Assessment/Plan Plan Narrative: Discussed her treatment plan with nephrology yesterday, who felt like her hypokalemia and hypomagnesemia were from ppi use and potential reduced po intake. She feels like she's been eating well. Pantoprazole stopped yesterday. Her amount of IV replacement of both K+ and Mg+ were doubled yesterday, and doubled her po MgOH. Her K+ this morning is still low at 2.6, but magnesium is slightly higher at 1.3. Will again give 80 mEq KCl and 2 g MgSO4 today, and repeat in the morning. 24 hour urine collection to check 24 hour potassium will complete this morning. She had greater than 100,000 cfu e coli in her urine, but denies symptoms, so without symptoms, she does not have a UTI. She does have dementia, so I am not sure she can accurately report symptoms. Will cover with cipro for 3 days. When her electrolytes are replaced, she will go home with home health. - Problems/Diagnosis (1) Hypokalemia Problem: Acute (2) Hypomagnesemia Problem: Acute (3) Generalized weakness Problem: Acute (4) Diabetes mellitus Problem: Acute Narrative: Newly diagnosed this admission. (5) Moderate dementia Problem: Chronic (6) Hypertension Problem: Chronic (7) Hyperglycemia Problem: Acute (8) Heart murmur Problem: Chronic (9) GERD (gastroesophageal reflux disease) Problem: Chronic (10) CVA (cerebral vascular accident) Problem: Resolved (11) Hyponatremia Problem: Resolved (12) Urinary tract infection Problem: Suspected
[2020-08-12] MEDS ORDERED: SPIRONOLACTONE 25 MG TABLET PO SCH (09:00)
[2020-08-12] MEDS: MAGNESIUM OXIDE 400 MG TABLET PO SCH ×2 (09:20→20:16)
[2020-08-12] MEDS: ASPIRIN 81 MG TABLET.DR PO SCH (09:20)
[2020-08-12] MEDS: POTASSIUM CHLORIDE 20 MEQ TABLET.SA PO SCH ×3 (09:20→17:27)
[2020-08-12] MEDS: ENOXAPARIN SODIUM 40 MG/0.4 ML SYRG SC SCH (09:21)
[2020-08-12] MEDS: amLODIPine BESYLATE 10 MG TABLET PO SCH (09:21)
[2020-08-12] MEDS: CIPROFLOXACIN HCL 250 MG TABLET PO SCH ×2 (09:21→20:15)
[2020-08-12] MEDS: POTASSIUM CHLORIDE IN WATER 100 ML IV SCH ×8 (09:50→17:28)
[2020-08-12 10:31] LABS: KUR 76.1 mmol/L (25-125)
[2020-08-13 06:47] LABS: Albumin * 3.1 gm/dl (3.4-5.0); Anion Gap 12.4 mmol/L (6.8-13.8); BUN/Creatinine Ratio 12.3 (9.0-21.6); Bilirubin, Total 0.4 mg/dL (0.0-1.1); Ca. Corrected For Albumin 9.1 mg/dL (8.4-10.2); Calcium * 8.7 mg/dL (7.9-10.9); Carbon Dioxide 27.6 mmol/L (24-32.6); Magnesium 1.5 mg/dL (1.2-2.8)
[2020-08-13] MEDS: INSULIN LISPRO 100 UNITS/ML VIAL SC SCH ×4 (07:02→20:32)
[2020-08-13] MEDS ORDERED: MAGNESIUM SULFATE IN WATER 50 ML IV ONE (07:14)
[2020-08-13] MEDS: POTASSIUM CHLORIDE IN WATER 100 ML IV SCH ×4 (08:08→11:15)
[2020-08-13] MEDS ORDERED: SPIRONOLACTONE 25 MG TABLET PO SCH (09:00)
[2020-08-13] MEDS: ENOXAPARIN SODIUM 40 MG/0.4 ML SYRG SC SCH (09:13)
[2020-08-13] MEDS: amLODIPine BESYLATE 10 MG TABLET PO SCH (09:13)
[2020-08-13] MEDS: MAGNESIUM OXIDE 400 MG TABLET PO SCH ×2 (09:13→20:33)
[2020-08-13] MEDS: ASPIRIN 81 MG TABLET.DR PO SCH (09:13)
[2020-08-13] MEDS: CIPROFLOXACIN HCL 250 MG TABLET PO SCH (09:14)
[2020-08-13] MEDS: POTASSIUM CHLORIDE 20 MEQ TABLET.SA PO SCH (09:14)
--- NOTE | 2020-08-13 11:43 | PN ---
Subjective - Date and Time Seen Date: 08/13/20 Time: 11:37 Subjective Narrative: She reports wanting to go home. Denies new concerns. No dysuria, vomiting, or diarrhea. She is eating meals without difficulty. She can walk to the bathroom with help. She denies having trouble taking the large potassium tablets, but nursing staff has found 2 Kdur tablets on the floor. Objective - Review of Systems Generalized/Overall Review: Reports: Weakness Respiratory: Denies: Shortness of Breath Cardiac: Denies: Chest Pain, Edema Abdominal: Denies: Vomiting, Diarrhea Genitourinary Symptoms: Reports: Incontinent. Denies: Burning - Vitals Vitals: Last Vital Signs Temp 37.0 C 08/13/20 07:27 Pulse 98 08/13/20 09:13 Resp 16 08/13/20 07:27 BP 135/64 08/13/20 09:13 Pulse Ox 95 08/13/20 07:27 - Abnormal Lab Findings Abnormal Lab Findings: Abnormal Lab Results 08/13/20 Range/Units 06:12 Potassium 3.0 L (3.4-4.6) mmol/L Random Glucose 134 H (70-110) mg/dL Albumin 3.1 L (3.4-5.0) gm/dl - Exam Constitutional: Present: Alert, Cooperative, Elderly Respiratory: Present: lungs clear, normal breath sounds Cardiovascular/Chest: Present: regular rate, rhythm Abdomen: Present: nontender, distended - her baseline Extremity: Absent: lower extremity edema Eye contact: Present: cooperative, good eye contact Cauti Physician Documentation - Urinary Catheter Management Urethral (Gee) Urethral Indwelling: No Date of Insertion: 08/11/20 Time of Insertion: 09:37 Assessment/Plan Plan Narrative: Today is day #6 of this hospitalization for hypokalemia and hypomagnesemia. She is wasting potassium in her urine, which may have been due to ppi use and insufficient po intake. She has not had this problem in the past, making Gitelman's or Bartter syndrome less likely. We have been giving between 40-80 mEq daily KCl via IV, and also replacing magnesium via IV, more aggressively the last couple of days since she was not correcting. She has also been given po 40 mEq KDur tid, though two tablets were found on the floor, so unsure how much of that she actually took. Have also been giving 400 mg MgOH, increase to bid two days ago. Her potassium levels are gradually increasing, most recently 3.0 this morning. this has been the highest am level thus far. Magnesium has also been only gradually increasing, and was 1.5 this morning. Stopped the ppi and added 12.5 mg spironolactone yesterday. Her BP is borderline high, so she can t olerate a higher spironolactone dose, and will increase her spironolactone to 25 mg today. Recheck BMP this afternoon and in am. DC could potentially happen in 24-48 hours if she is able to maintain her electrolytes. Urine was positive for >100,000 cfu e coli, but she was asymptomatic. Unsure if she would be able to reliably report symptoms, however, so she was covered with 3 days of cipro to complete today. Newly diagnosed with diabetes this admission with an A1C of 6.7. With her dementia, would prefer to avoid adding additional medications to avoid their side effects. Her glucose has been mostly in the 100's this admission. She has some dementia, and her has limited medical literacy, so she is at risk for readmission, but her would like to take her home with [facility] after DC. - Problems/Diagnosis (1) Hypokalemia Problem: Acute (2) Hypomagnesemia Problem: Acute (3) Generalized weakness Problem: Acute (4) Diabetes mellitus Problem: Acute (5) Moderate dementia Problem: Chronic (6) Hypertension Problem: Chronic (7) Hyperglycemia Problem: Acute (8) Heart murmur Problem: Chronic (9) GERD (gastroesophageal reflux disease) Problem: Chronic (10) CVA (cerebral vascular accident) Problem: Resolved (11) Hyponatremia Problem: Resolved (12) Urinary tract infection Problem: Suspected
[2020-08-13] MEDS: POTASSIUM BICARBONATE/CIT AC 25 MEQ TABLET.EFF PO SCH ×2 (12:24→17:29)
[2020-08-13 16:00] LABS: Anion Gap 11.7 mmol/L (6.8-13.8); BUN/Creatinine Ratio 14.5 (9.0-21.6); Carbon Dioxide 27.5 mmol/L (24-32.6); Estimated Creat Clear 55.3; Potassium 4.2 mmol/L (3.4-4.6)
[2020-08-14 06:33] LABS: Albumin * 3.1 gm/dl (3.4-5.0); Anion Gap 11.1 mmol/L (6.8-13.8); BUN/Creatinine Ratio 12.1 (9.0-21.6); Bilirubin, Total 0.4 mg/dL (0.0-1.1); Ca. Corrected For Albumin 9.2 mg/dL (8.4-10.2); Calcium * 8.8 mg/dL (7.9-10.9); Carbon Dioxide 28.6 mmol/L (24-32.6); Magnesium 1.5 mg/dL (1.2-2.8); Potassium 2.7 mmol/L (3.4-4.6)
[2020-08-14] MEDS: INSULIN LISPRO 100 UNITS/ML VIAL SC SCH ×4 (06:56→20:09)
[2020-08-14] MEDS ORDERED: MAGNESIUM SULFATE IN WATER 50 ML IV ONE (08:00)
[2020-08-14] MEDS: ENOXAPARIN SODIUM 40 MG/0.4 ML SYRG SC SCH (08:48)
[2020-08-14] MEDS: ASPIRIN 81 MG TABLET.DR PO SCH (08:48)
[2020-08-14] MEDS: POTASSIUM BICARBONATE/CIT AC 25 MEQ TABLET.EFF PO SCH (08:48)
[2020-08-14] MEDS: SPIRONOLACTONE 25 MG TABLET PO SCH (08:48)
[2020-08-14] MEDS: amLODIPine BESYLATE 10 MG TABLET PO SCH (08:49)
[2020-08-14] MEDS: MAGNESIUM OXIDE 400 MG TABLET PO SCH ×2 (08:49→20:10)
[2020-08-14] MEDS: POTASSIUM CHLORIDE IN WATER 100 ML IV SCH ×4 (09:08→12:24)
--- NOTE | 2020-08-14 10:00 | PN ---
Subjective - Date and Time Seen Date: 08/14/20 Time: 09:59 Subjective Narrative: She does not like the orange KLyte. No vomiting or diarrhea. She's looking forward to going home. Objective - Review of Systems Generalized/Overall Review: Reports: Weakness. Denies: Fever Respiratory: Denies: Shortness of Breath Cardiac: Denies: Chest Pain Abdominal: Denies: Vomiting, Diarrhea Genitourinary Symptoms: Denies: Dysuria - Vitals Vitals: Last Vital Signs Temp 36.6 C 08/14/20 06:33 Pulse 104 H 08/14/20 08:49 Resp 16 08/14/20 06:33 BP 148/80 08/14/20 08:49 Pulse Ox 96 08/14/20 06:33 - Abnormal Lab Findings Abnormal Lab Findings: Abnormal Lab Results 08/13/20 08/14/20 Range/Units 15:49 06:07 Potassium 2.7 L D (3.4-4.6) mmol/L Chloride 96 L (97-106) mmol/L Random Glucose 155 H 139 H (70-110) mg/dL Albumin 3.1 L (3.4-5.0) gm/dl - Exam Constitutional: Present: Alert, No distress, Elderly Respiratory: Present: lungs clear, normal breath sounds, no respiratory distress Cardiovascular/Chest: Present: regular rate, rhythm Abdomen: Present: obese Extremity: Absent: lower extremity edema Eye contact: Present: cooperative, good eye contact Cauti Physician Documentation - Urinary Catheter Management Urethral (Gee) Urethral Indwelling: No Date of Insertion: 08/11/20 Time of Insertion: 09:37 Assessment/Plan Plan Narrative: Today is day #8 of hospitalization for hypokalemia and hypomagnesemia, thought to be due to ppi use and potential decreased po intake. She has been wasting her potassium in her urine. Discussed her case with nephrology last week, who recommended increasing IV replacement and adding spironolactone. Her spironolactone dose was started 12.5 mg, and have been increasing this daily and monitoring her blood pressure. Two tablets of KDur were found on the floor, so she was not taking all of her po replacement. Her also reports he would find potassium pills in her pockets when he did laundry. This was changed to KLyte yesterday. However, she dislikes the KLyte and would like to resume KDur. She has been tolerating this with applesauce. 40 mEq KCl has been ordered, along with 2 mg IV magnesium sulfate, and will recheck BMP this afternoon. Will give an additional 40 mEq KCl if needed. Completed 3 days of cipro for urine culture growing greater than 100,000 cfu e coli. She declined symptoms, but with her dementia, I am unsure if she would report symptoms. Her would like to bring her home with home health after DC. Diabetes diagnosed this admission. With her dementia and electrolyte abnormalities, will not add additional meds at this time. Glucose has mostly been in the 100's. A1C was 6.7. If her potassium stays greater than 3.0, anticipate DC could happen in the next 24-48 hours. - Problems/Diagnosis (1) Hypokalemia Problem: Acute (2) Hypomagnesemia Problem: Acute (3) Generalized weakness Problem: Acute (4) Diabetes mellitus Problem: Acute (5) Moderate dementia Problem: Chronic (6) Hypertension Problem: Chronic (7) Hyperglycemia Problem: Acute (8) Heart murmur Problem: Chronic (9) GERD (gastroesophageal reflux disease) Problem: Chronic (10) CVA (cerebral vascular accident) Problem: Resolved (11) Hyponatremia Problem: Resolved (12) Urinary tract infection Problem: Suspected
[2020-08-14] MEDS: POTASSIUM CHLORIDE 20 MEQ TABLET.SA PO SCH ×2 (12:26→17:14)
[2020-08-14 16:15] LABS: Anion Gap 8.6 mmol/L (6.8-13.8); BUN/Creatinine Ratio 17.6 (9.0-21.6); Calcium * 9.4 mg/dL (7.9-10.9); Carbon Dioxide 29.6 mmol/L (24-32.6); Estimated Creat Clear 46.4; Potassium 4.2 mmol/L (3.4-4.6)
[2020-08-15 06:20] LABS: Albumin * 3.1 gm/dl (3.4-5.0); Anion Gap 10.2 mmol/L (6.8-13.8); BUN/Creatinine Ratio 14.7 (9.0-21.6); Bilirubin, Total 0.4 mg/dL (0.0-1.1); Ca. Corrected For Albumin 9.3 mg/dL (8.4-10.2); Calcium * 8.9 mg/dL (7.9-10.9); Magnesium 1.7 mg/dL (1.2-2.8); Potassium 3.2 mmol/L (3.4-4.6)
[2020-08-15] MEDS: INSULIN LISPRO 100 UNITS/ML VIAL SC SCH ×2 (07:20→11:43)
[2020-08-15] MEDS: SPIRONOLACTONE 25 MG TABLET PO SCH (08:18)
[2020-08-15] MEDS: ENOXAPARIN SODIUM 40 MG/0.4 ML SYRG SC SCH (08:18)
[2020-08-15] MEDS: MAGNESIUM OXIDE 400 MG TABLET PO SCH (08:19)
[2020-08-15] MEDS: POTASSIUM CHLORIDE 20 MEQ TABLET.SA PO SCH ×2 (08:19→13:58)
[2020-08-15] MEDS: ASPIRIN 81 MG TABLET.DR PO SCH (08:19)
[2020-08-15] MEDS: amLODIPine BESYLATE 10 MG TABLET PO SCH (08:20)
--- NOTE | 2020-08-15 08:30 | DS ---
(1) Hypokalemia Problem: Acute (2) Hypomagnesemia Problem: Resolved (3) Generalized weakness Problem: Chronic (4) Diabetes mellitus Problem: Acute (5) Moderate dementia Problem: Chronic (6) Hypertension Problem: Chronic (7) Hyperglycemia Problem: Resolved (8) Heart murmur Problem: Chronic (9) GERD (gastroesophageal reflux disease) Problem: Chronic (10) CVA (cerebral vascular accident) Problem: Resolved (11) Hyponatremia Problem: Resolved (12) Urinary tract infection Problem: Suspected Date of Discharge:: 08/15/20 Hospital Course: Patient presented to the ED for weakness, and was found to have hypokalemia and hypomagnesemia, thought to be due to ppi use and potential decreased po intake. Initial K+ was 2.3, initial Mg+ was 1.0, and took several days of IV replacement of both to improve. This hospitalization spanned 9 days. Potassium was less than 3 each morning until the day of DC, when it was 3.2, acceptable for DC. Discussed her case and worked through a plan with nephrology when correction took longer than anticipated. She has been wasting her potassium in her urine. Her spironolactone dose was started 12.5 mg, increased this daily and monitored her blood pressure. She was tolerating 50 mg spironolactone, and will continue after DC. Two tablets of KDur were found on the floor, so she was not taking all of her po replacement. Her also reports he would find potassium pills in her pockets when he did laundry. This was changed to KLyte on 08/13. However, she disliked the KLyte and would like to resume KDur. She tolerated this with applesauce. She tolerated 400 mg MgOH bid. She is not to resume a ppi or HCTZ. Will continue KLyte daily and KDur tid, and recheck in 2 days, and again in a week. She and her agree to having home health. Completed 3 days of cipro for urine culture growing greater than 100,000 cfu e coli. She declined symptoms, but with her dementia, I am unsure if she would report symptoms. Her would like to bring her home with home health after DC. Diabetes diagnosed this admission. With her dementia and electrolyte abnormalities, will not add additional meds at this time. Glucose has mostly been in the 100's. A1C was 6.7. [place] [facility] is homebound to the home due to dementia, electrolyte abnormalities, and new onset diabetes. The need for care home is medication management due to new meds, and lack of understanding of meds leading to med nonadherence. The need for home health care skilled services is directly related to the time spent [id number] with her. Procedures Performed: none Results and Findings: Lab Pending Results 08/07/20 09:11: Urine Color Yellow, Urine Appearance Clear, Urine pH 7.5, Ur Specific [place] 1.015, Urine Protein 30 H, Urine Glucose (UA) Negative, Urine Ketones Negative, Urine Blood 5 H, Urine Nitrate Negative, Urine Bilirubin Negative, Urine Urobilinogen Normal, Ur Leukocyte Esterase Negative, Urine RBC None seen, Urine WBC None seen, Ur Epithelial Cells None seen, Urine Bacteria None seen, Urine Culture Comments No culture indicated 08/07/20 09:23: WBC 11.2 H, RBC 4.38, Hgb 12.2 L, Hct 35.1 L, MCV 80.1, MCH 27.9, MCHC 34.8, RDW 13.3, Plt Count 340, MPV 8.3, Immature Gran % (Auto) 0.40, Immature Gran # (Auto) 0.04 H, Neutrophils % 78.3 H, Lymphocytes % 14.3 L, Monocytes % 6.4, Eosinophils % 0.3, Basophils % 0.3, Nucleated RBC % 0.0, Neutrophils # 8.8 H, Lymphocytes # 1.61, Monocytes # 0.7, Eosinophils # 0.0, Absolute Basophils 0.0 08/07/20 09:23: Sodium 134, Plasma Sodium 136, Potassium 2.5 L, Chloride 95 L, Carbon Dioxide 30.3, Anion Gap 11.2, BUN 8, Creatinine 0.62, Est GFR (Non-Af Amer) 98, BUN/Creatinine Ratio 12.9, Random Glucose 207 H, Calcium 8.1, Calcium Adj for Albumin 8.3 L, Total Bilirubin 0.6, AST 20, ALT 22, Alkaline Phosphatase 99, Troponin I 0.021, Total Protein 7.5, Albumin 3.3 L, TSH 1.206 08/07/20 09:23: Lactic Acid, Venous 1.3 08/07/20 09:23: Ammonia Less than 17.0 08/07/20 09:23: Magnesium 1.0 L 08/07/20 10:32: SARS-CoV-2 (PCR) Not detected 08/07/20 18:39: Sodium 136, Plasma Sodium 137, Potassium 2.3 L*, Chloride 99, Carbon Dioxide 29.3, Anion Gap 10.0, BUN 5, Creatinine 0.53, Est GFR (Non-Af Elaine r) 117, BUN/Creatinine Ratio 9.4, Random Glucose 151 H, Calcium 7.8 L, Calcium Adj for Albumin 8.4, Total Bilirubin 0.5, AST 17, ALT 20, Alkaline Phosphatase 88, Total Protein 6.6, Albumin 2.8 L 08/08/20 06:22: Sodium 136, Plasma Sodium 137, Potassium 2.3 L*, Chloride 96 L, Carbon Dioxide 29.8, Anion Gap 12.5, BUN 3, Creatinine 0.57, Est GFR (Non-Af Amer) 108, BUN/Creatinine Ratio 5.3 L, Random Glucose 147 H, Calcium 8.7, Calcium Adj for Albumin 8.9, Magnesium 1.4, Total Bilirubin 0.8, AST 25, ALT 23, Alkaline Phosphatase 100, Total Protein 7.8, Albumin 3.4 08/08/20 13:59: Sodium 131 L, Plasma Sodium 133, Potassium 3.7 D, Chloride 95 L, Carbon Dioxide 27.2, Anion Gap 12.5, BUN 9 D, Creatinine 0.71, Est GFR (Non- Af Amer) 84 D, BUN/Creatinine Ratio 12.7, Random Glucose 203 H D, Calcium 8.6 08/09/20 06:15: Mean Blood Glucose 146, Hemoglobin A1c 6.7 H 08/09/20 06:15: Sodium 133, Plasma Sodium 134, Potassium 2.2 L* D, Chloride 96 L, Carbon Dioxide 28.8, Anion Gap 10.4, BUN 5, Creatinine 0.56, Est GFR (Non-Af Amer) 110 D, BUN/Creatinine Ratio 8.9 L, Random Glucose 138 H D, Calcium 8.2, Calcium Adj for Albumin 8.7, Total Bilirubin 0.6, AST 20, ALT 22, Alkaline Phosphatase 87, Total Protein 6.9, Albumin 3.0 L 08/09/20 06:20: Magnesium 1.1 L 08/09/20 06:20: Aldosterone 8 08/09/20 17:27: Sodium 131 L, Plasma Sodium 132, Potassium 3.5 D, Chloride 93 L, Carbon Dioxide 24.8, Anion Gap 16.7 H, BUN 12 D, Creatinine 0.64, Est GFR (Non-Af Amer) 94, BUN/Creatinine Ratio 18.8, Random Glucose 160 H, Calcium 9.1 08/10/20 06:00: Sodium 133, Plasma Sodium 134, Potassium 2.9 L, Chloride 98, Carbon Dioxide 28.2, Anion Gap 9.7, BUN 8, Creatinine 0.61, Est GFR (Non-Af Amer) 100, BUN/Creatinine Ratio 13.1, Random Glucose 148 H, Calcium 8.3, Calcium Adj for Albumin 8.9, Magnesium 1.1 L, Total Bilirubin 0.5, AST 19, ALT 22, Alkaline Phosphatase 79, Total Protein 6.7, Albumin 2.8 L 08/10/20 10:55: Ur Random Potassium 83.1 H 08/10/20 10:55: Urine Color Yellow, Urine Appearance Cloudy, Urine pH 7.0, Ur Specific [place] 1.020, Urine Protein 30 H, Urine Glucose (UA) 100 H, Urine Ketones Negative, Urine Blood Negative, Urine Nitrate Negative, Urine Bilirubin Negative, Urine Urobilinogen 2.0 H, Ur Leukocyte Esterase 100 H, Urine RBC None seen, Urine WBC 10-25 H, Ur Epithelial Cells 0-5, Urine Bacteria 3+ H 08/10/20 15:06: Sodium 129 L, Plasma Sodium 130, Potassium 5.3 H D, Chloride 97, Carbon Dioxide 25.6, Anion Gap 11.7, BUN 11, Creatinine 0.68, Est GFR (Non-Af Amer) 88, BUN/Creatinine Ratio 16.2, Random Glucose 173 H, Calcium 8.5, Magnesium 1.5 08/11/20 06:34: Sodium 134, Plasma Sodium 135, Potassium 2.6 L D, Chloride 99, Carbon Dioxide 26.6, Anion Gap 11.0, BUN 9, Creatinine 0.62, Est GFR (Non-Af Amer) 98, BUN/Creatinine Ratio 14.5, Random Glucose 132 H, Calcium 8.1, Calcium Adj for Albumin 8.7, Magnesium 1.2, Total Bilirubin 0.4, AST 22, ALT 24, Alkaline Phosphatase 76, Total Protein 6.8, Albumin 2.9 L 08/12/20 06:30: Sodium 135, Plasma Sodium 136, Potassium 2.6 L, Chloride 96 L, Carbon Dioxide 27.7, Anion Gap 13.9 H, BUN 7, Creatinine 0.52, Est GFR (Non-Af Amer) 120 D, BUN/Creatinine Ratio 13.5, Random Glucose 140 H, Calcium 8.6, Calcium Adj for Albumin 9.0, Magnesium 1.3, Total Bilirubin 0.4, AST 16, ALT 25, Alkaline Phosphatase 77, Total Protein 7.2, Albumin 3.1 L 08/12/20 09:50: Urine Collection Time 24, Urine Total Volume 3600, Ur Potassium 24 Hour 274 H 08/13/20 06:12: Sodium 134, Plasma Sodium 135, Potassium 3.0 L, Chloride 97, Carbon Dioxide 27.6, Anion Gap 12.4, BUN 7, Creatinine 0.57, Est GFR (Non-Af Amer) 108, BUN/Creatinine Ratio 12.3, Random Glucose 134 H, Calcium 8.7, Calcium Adj for Albumin 9.1, Magnesium 1.5, Total Bilirubin 0.4, AST 32, ALT 33, Alkaline Phosphatase 83, Total Protein 7.0, Albumin 3.1 L 08/13/20 15:49: Sodium 133, Plasma Sodium 134, Potassium 4.2 D, Chloride 98, Carbon Dioxide 27.5, Anion Gap 11.7, BUN 9, Creatinine 0.62, Est GFR (Non-Af Amer) 98, BUN/Creatinine Ratio 14.5, Random Glucose 155 H, Calcium 9.0 08/14/20 06:07: Sodium 133, Plasma Sodium 134, Potassium 2.7 L D, Chloride 96 L, Carbon Dioxide 28.6, Anion Gap 11.1, BUN 7, Creatinine 0.58, Est GFR (Non-Af Amer) 106, BUN/Creatinine Ratio 12.1, Random Glucose 139 H, Calcium 8.8, Calcium Adj for Albumin 9.2, Magnesium 1.5, Total Bilirubin 0.4, AST 37, ALT 42, Alkaline Phosphatase 83, Total Protein 7.0, Albumin 3.1 L 08/14/20 16:04: Sodium 130 L, Plasma Sodium 131, Potassium 4.2 D, Chloride 96 L, Carbon Dioxide 29.6, Anion Gap 8.6, BUN 13 D, Creatinine 0.74, Est GFR (Non- Af Amer) 80 D, BUN/Creatinine Ratio 17.6, Random Glucose 149 H, Calcium 9.4 08/15/20 06:00: Sodium 134, Plasma Sodium 135, Potassium 3.2 L D, Chloride 98, Carbon Dioxide 29.0, Anion Gap 10.2, BUN 10, Creatinine 0.68, Est GFR (Non-Af Amer) 88, BUN/Creatinine Ratio 14.7, Random Glucose 139 H, Calcium 8.9, Calcium Adj for Albumin 9.3, Magnesium 1.7, Total Bilirubin 0.4, AST 30, ALT 44, Alkaline Phosphatase 84, Total Protein 7.0, Albumin 3.1 L Discharge Location: Home Disposition: Home Health Service Home Health Agency: [facility] Home Health Condition: Stable Discharge Activity: Activity as tolerated Discharge Diet: General/regular food Referrals: Ginette Hayward DO [Primary Care Provider] - Two Weeks Additional Patient Instructions (free text): [facility] HH new at discharge. Please call and fax discharge information to them. Prescriptions (Any new or edited meds): Spironolactone [Aldactone] 50 mg PO DAILY #30 tab Transmission Status: Pending to [facility] #[id number] Potassium Chloride [K-Dur] 40 meq PO TIDWM #90 tablet.sa Transmission Status: Pending to [facility] #[id number] Potassium Bicarbonate/Cit AC [K-Lyte] 25 meq PO DAILY #30 tablet.eff Transmission Status: Pending to [facility] #[id number] Magnesium Oxide [Mag-Ox 400] 400 mg PO BID #60 tab Transmission Status: [id number] Calcium Carbonate [Tums] 500 mg PO QID PRN #1 bottle PRN Reason: Dyspepsia Transmission Status: Pending to [facility] #[id number] Complete Home Medications List: Complete Home Medication List: aspirin 81 mg tablet,delayed release 81 mg PO DAILY 10/13/18 amlodipine 10 mg tablet See Rx Instructions .ROUTE .COMPLEX #30 tab 07/14/20 Calcium Carbonate [Tums] 500 mg PO QID PRN #1 bottle 08/15/20 Magnesium Oxide [Mag-Ox 400] 400 mg PO BID #60 tab 08/15/20 Potassium Bicarbonate/Cit AC [K-Lyte] 25 meq PO DAILY #30 tablet.eff 08/15/20 Potassium Chloride [K-Dur] 40 meq PO TIDWM #90 tablet.sa 08/15/20 Spironolactone [Aldactone] 50 mg PO DAILY #30 tab 08/15/20 Forms: Patient Portal Registration
[2020-08-15] MEDS ORDERED: POTASSIUM BICARBONATE/CIT AC 25 MEQ TABLET.EFF PO SCH (09:00)
[2020-08-15 15:04] VITALS: BP 151/72
== END 2020-08-15 16:00 | disposition home health service (06) | DRG 641 ==
LOC: ER 08:58 → MS 08:58 → OBSVTOIN 12:10 → MS 12:51
PROVIDERS: ADMIT Family Medicine; ATTEND Family Medicine
DX: N39.0 Urinary tract infection, site not specified; I10 Essential (primary) hypertension; E87.1 Hypo-osmolality and hyponatremia; F03.90 Unspecified dementia, unspecified severity, without behavioral disturbance, psychotic disturbance, mood disturbance, and anxiety; E11.65 Type 2 diabetes mellitus with hyperglycemia; Z86.73 Personal history of transient ischemic attack (TIA), and cerebral infarction without residual deficits; E86.0 Dehydration; K21.9 Gastro-esophageal reflux disease without esophagitis; E87.6 Hypokalemia; R53.1 Weakness; E83.42 Hypomagnesemia; R01.1 Cardiac murmur, unspecified

== ENCOUNTER 2020-08-28 16:18 | Observation (INO) ==
[2020-08-28 16:42] LABS: Hematocrit 43.8 % (37.0-47.0); Mean Cell Volume 81.9 fl (78-100); Mean Corpuscular Hgb Conc 34.2 g/dl (32-36); Neutrophil # 9.7 K/mm3 (1.3-6.0); Neutrophil % 78.5 % (42-75.0); Platelet Count 503 K/mm3 (150-450); Red Blood Count 5.35 M/mm3 (4.2-5.4); Red Cell Distribution Width 13.5 % (11.5-14.0); White Blood Count 12.4 K/mm3 (4.0-10.5)
[2020-08-28 17:09] LABS: ALT 68 U/L (19-67); AST 43 U/L (0-48); Albumin * 4.2 gm/dl (3.4-5.0); Alkaline Phosphatase * 110 U/L (50-170); Anion Gap 14.8 mmol/L (6.8-13.8); BUN/Creatinine Ratio 16.3 (9.0-21.6); Bilirubin, Total 0.7 mg/dL (0.0-1.1); Blood Urea Nitrogen 14 mg/dL (3-23); Calcium * 10.5 mg/dL (7.9-10.9); Carbon Dioxide 25.3 mmol/L (24-32.6); Chloride 98 mmol/L (97-106); Glucose * 153 mg/dL (70-110); Potassium 5.1 mmol/L (3.4-4.6); Sodium 133 mmol/L (132-142); Total Protein 8.8 gm/dL (6.2-8.2); Troponin I Less than 0.017 ng/mL (0.00-0.10)
[2020-08-28 17:11] LABS: Urine Bilirubin Negative (NEGATIVE); Urine Blood Negative /ul (NEGATIVE); Urine Ketone Negative (NEGATIVE); Urine Nitrite Negative (NEGATIVE); Urine Protein 15 mg/dL (NEGATIVE); Urine Urobilinogen Normal (NORMAL)
[2020-08-28 17:17] LABS: Urine Appearance Slightly Cloudy (CLEAR); Urine Bacteria TRACE; Urine Color Yellow; Urine RBC None Seen /hpf (0-5); Urine WBC None Seen /hpf (0-5)
[2020-08-28 17:18] LABS: Urine Amorphous Sediment TRACE (NONE-FEW); Urine Mucus TRACE
--- NOTE | 2020-08-28 19:17 | ERNOTE ---
Medical Problem HPI - Narrative Date of Service: 08/28/20 - General Chief Complaint: General Assessment Time Seen by Provider: 08/28/20 16:39 Source: patient, family Exam Limitations: dementia - Immun/Allergies/Home Medications Immunizations: IMMUNIZATION HX Immunizations Up to Date Yes History of Influenza Vaccine Yes Hx Pneumococcal Vaccination Yes Allergies/Adverse Reactions: Allergies No Known Allergies Allergy (Verified 08/28/20 16:24) Home Medications: HOME MEDICATIONS aspirin 81 mg tablet,delayed release 81 mg PO DAILY 10/13/18 [Last Taken Unknown] amlodipine 10 mg tablet See Rx Instructions .ROUTE .COMPLEX #30 tab 07/14/20 [Last Taken Unknown] Calcium Carbonate [Tums] 500 mg PO QID PRN #1 bottle 08/15/20 [Last Taken Unknown] Magnesium Oxide [Mag-Ox 400] 400 mg PO BID #60 tab 08/15/20 [Last Taken Unknown] Spironolactone [Aldactone] 50 mg PO DAILY #30 tab 08/15/20 [Last Taken Unknown] potassium chloride 20 mEq tablet,extended release(part/cryst) 40 meq PO TIDWM #90 tablet.sa 08/15/20 [Last Taken Unknown] - History of Present History Narrative: Initially patient here with and unable to provide history. later arrives and provides additional history. Patient has had general declines and not eating well for several weeks. Today hard to get her out of bed, she could not ambulate and started to fall, was gently let down to the ground. No trauma. Chronic right leg problem, this is not acute. Worsening generalized weakness. Timing: constant, getting worse Severity: severe Modifying Factors - (Improves): Present: other - nothing Modifying Factors - (Worsens): Present: other - activity Review of Systems - Narrative Narrative: unable to obtain ROS in entirety due to dementia Medical History (Last Reviewed 08/28/20 @ 19:15 by Farhad Burns MD) Vertigo, post-stroke (Resolved) Onset Date: Unknown Urinary frequency (Acute) Onset Date: Unknown Stress due to illness of family member (Acute) Onset Date: Unknown Right knee pain (Chronic) Onset Date: Unknown Neurogenic bladder (Acute) Onset Date: Unknown Incomplete bladder emptying (Acute) Onset Date: Unknown Hypertension (Chronic) Onset Date: Unknown Hyperlipidemia (Chronic) Onset Date: Unknown Hyperglycemia (Resolved) Onset Date: Unknown Heart murmur (Chronic) Onset Date: Unknown Goiter (Acute) Onset Date: Unknown GERD (gastroesophageal reflux disease) (Chronic) Onset Date: Unknown Fatigue (Acute) Onset Date: Unknown 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) Onset Date: Unknown Left CVA (cerebral vascular accident) (Resolved) Onset Date: Unknown Chest wall pain (Acute) Onset Date: Unknown Morales's esophagus (Acute) Onset Date: Unknown Asthma (Chronic) Onset Date: Unknown Herpes zoster Onset Date: Unknown Surgical History: Surgical History (Last Reviewed 08/28/20 @ 19:15 by Farhad Burns MD) Core biopsy left breast Onset Date: Unknown History of bladder suspension procedure Onset Date: ~1999 and sling History of esophagogastroduodenoscopy (EGD) Onset Date: ~09/11/05 Hx of section Onset Date: Unknown Hx of colonoscopy Onset Date: Unknown 12/29/09; 03/22/15 Hx of hysterectomy Onset Date: ~1974 Hx of mastectomy Onset Date: ~12/10/12 Left Hx of thyroidectomy Onset Date: ~1987 Plication of bladder Onset Date: Unknown Family History: Family History (Last Reviewed 08/28/20 @ 19:15 by Farhad Burns MD) Mother Hypertension Thyroid disorder Colon cancer Grandmother Colon cancer Maternal Uncle Carcinoma in situ Social History: (Last Reviewed 08/28/20 @ 19:15 by Farhad Burns MD) Social History: adopted: No foster care: No penitentiary: No Marital status: lives independently: No household members: spouse caregiver/support person: No current occupational status: retired Highest level of school completed/degree received: high school graduate Service: No Tobacco: Smoking Status: Never smoker Alcohol: alcohol intake: former details: 1-2 times/yr Substance Use: substance use type: does not use Dietary Habits: caffeine: Yes Personal Safety: victim of physical abuse: No victim of emotional abuse: No victim of sexual abuse: No Physical Exam - Physical Exam General Appearance: Present: alert, no apparent distress Head Exam: Present: normal inspection, no evidence of injury Eye Exam: Normal inspection: bilateral, PERRL: bilateral Ears, Nose, Throat: Present: normal ENT inspection Neck: Present: normal inspection Respiratory: Present: no respiratory distress, normal breath sounds, no accessory muscle use, lungs clear Cardiovascular/Chest: Present: regular rate, rhythm, normal peripheral pulses Gastrointestinal/Abdominal: Present: normal bowel sounds, nontender, nondistended, soft Back Exam: Absent: CVA tenderness (R), CVA tenderness (L) Extremity Exam: Present: other - no deformity. No suggestion of DVT. No tenderness elicited with ROM or palpation Neurological Exam: Present: alert, other - reported dementia noted. paitnet with significant generalized weakness. No acute unilateral focal motor or sensory deficits, nothign to suggest acute stroke Skin Exam: Present: normal color, warm/dry Progress - Results and Orders Patient's Lab Results:: I have reviewed the patient's lab results. - Vital Signs Patient's Vital Signs:: I have reviewed the patient's vital signs. Vital Signs: Vital Signs 08/28/20 16:20 08/28/20 17:14 08/28/20 17:44 Temperature 36.6 C Pulse Rate 105 H 101 H 101 H Respiratory Rate 23 H 28 H 21 H Blood Pressure 190/74 H 150/73 H 157/74 H O2 Sat by Pulse Oximetry 96 98 99 08/28/20 18:30 Temperature Pulse Rate 115 H Respiratory Rate 21 H Blood Pressure 182/78 H O2 Sat by Pulse Oximetry 96 - EKG EKG #1 EKG: NSR EKG read: Interp. by me EKG Comments: NSR rate 99. Non-specific ST/T wave changes, no STEMI noted - Progress/Reassessment Chief Complaint: General Assessment Progress Note-Subjective: 08/28/20 19:12 Patient was unable to ambulate with assistance here, no pain but too weak and unsteady. There was no trauma to suggest need for x-rays or head injury to suggest need for CT. She had significant generalized weakness without clear acute cause. Her relates that he is unable to care for her at home like this. Understands that she may need skilled or nursing facility and is agreeable. I spoke with Dr Camp who is agreeable to admission. 08/28/20 19:17 Departure Clinical Impression: Generalized weakness, Gait instability, Failure to thrive - Departure Disposition: Still a patient Condition: Fair
--- NOTE | 2020-08-28 21:10 | HP ---
Chief Complaint - Chief Complaint Date of Service: 08/28/20 Time of Service: 21:10 Chief Complaint: Weakness, fatigue History of Present Illness: 80-year-old female admitted here due to weakness and fatigue. Patient is a poor story and some mostly history obtained from the ER record. Apparently patient has been declining from musculoskeletal standpoint the last few weeks to the point where her was unable to care for and brought her in as he knows that she likely need to be placed in a nursing facility. Apparently patient had tried to get out of bed today and was unable to do so, she was unstable, and had to be caught by family and laid to the ground gently. She did not fall and did not sustain injury. No loss of consciousness. ER work-up shows her to have a mildly elevated white count 12.4 with a left shift at 78.5 but no obvious source of infection. Patient denies any symptoms including no cough, fever or chills, chest pain, shortness of breath, abdominal pain, nausea or vomiting, burning with urination/urgency/frequency. No skin lesions. Patient also had a mildly elevated potassium of 5.1, she is on potassium 3 times a day. UA was negative for infection. And she was Covid negative. Patient placed in observation and transferred to the floor. Medical History (Last Reviewed 08/28/20 @ 20:16 by Germania Lloyd RN) Vertigo, post-stroke (Resolved) Onset Date: Unknown Urinary frequency (Acute) Onset Date: Unknown Stress due to illness of family member (Acute) Onset Date: Unknown Right knee pain (Chronic) Onset Date: Unknown Neurogenic bladder (Acute) Onset Date: Unknown Incomplete bladder emptying (Acute) Onset Date: Unknown Hypertension (Chronic) Onset Date: Unknown Hyperlipidemia (Chronic) Onset Date: Unknown Hyperglycemia (Resolved) Onset Date: Unknown Heart murmur (Chronic) Onset Date: Unknown Goiter (Acute) Onset Date: Unknown GERD (gastroesophageal reflux disease) (Chronic) Onset Date: Unknown Fatigue (Acute) Onset Date: Unknown 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) Onset Date: Unknown Left CVA (cerebral vascular accident) (Resolved) Onset Date: Unknown Chest wall pain (Acute) Onset Date: Unknown Morales's esophagus (Acute) Onset Date: Unknown Asthma (Chronic) Onset Date: Unknown Herpes zoster Onset Date: Unknown Surgical History: Surgical History (Last Reviewed 08/28/20 @ 20:16 by Germania Lloyd RN) Core biopsy left breast Onset Date: Unknown History of bladder suspension procedure Onset Date: ~1999 and sling History of esophagogastroduodenoscopy (EGD) Onset Date: ~09/11/05 Hx of section Onset Date: Unknown Hx of colonoscopy Onset Date: Unknown 12/29/09; 03/22/15 Hx of hysterectomy Onset Date: ~1974 Hx of mastectomy Onset Date: ~12/10/12 Left Hx of thyroidectomy Onset Date: ~1987 Plication of bladder Onset Date: Unknown Family History: Family History (Last Reviewed 08/28/20 @ 20:16 by Germania Lloyd RN) Mother Hypertension Thyroid disorder Colon cancer Grandmother Colon cancer Maternal Uncle Carcinoma in situ Social History: (Last Reviewed 08/28/20 @ 20:16 by Germania Lloyd RN) Social History: adopted: No foster care: No halfway: No Marital status: lives independently: No household members: spouse caregiver/support person: No current occupational status: retired Highest level of school completed/degree received: high school graduate Service: No Tobacco: Smoking Status: Never smoker Alcohol: alcohol intake: former details: 1-2 times/yr Substance Use: substance use type: does not use Dietary Habits: caffeine: Yes Personal Safety: victim of physical abuse: No victim of emotional abuse: No victim of sexual abuse: No Review Of Systems (GEN) - Review of Systems Generalized/Overall Review: Present: Weakness. Absent: Chills, Fever EENTM: Present: No Symptoms Reported Respiratory: Present: No Symptoms Reported Cardiac: Present: No Symptoms Reported Abdominal: Present: No Symptoms Reported Genitourinary: Present: No Symptoms Reported Musculoskeletal: Present: No Symptoms Reported Neurological: Present: No Symptoms Reported Skin: Present: No Symptoms Reported Endocrine: Present: No Symptoms Reported Immunizations: IMMUNIZATION HX Immunizations Up to Date Yes History of Influenza Vaccine Yes Hx Pneumococcal Vaccination Yes Allergies/Adverse Reactions: Allergies Allergy/AdvReac Type Severity Reaction Status Date / Time No Known Allergies Allergy Verified 08/28/20 16:24 Home Medications: HOME MEDICATIONS aspirin 81 mg tablet,delayed release 81 mg PO DAILY 10/13/18 [Last Taken Unknown] amlodipine 10 mg tablet See Rx Instructions .ROUTE .COMPLEX #30 tab 07/14/20 [Last Taken Unknown] Calcium Carbonate [Tums] 500 mg PO QID PRN #1 bottle 08/15/20 [Last Taken Unknown] Magnesium Oxide [Mag-Ox 400] 400 mg PO BID #60 tab 08/15/20 [Last Taken Unknown] Spironolactone [Aldactone] 50 mg PO DAILY #30 tab 08/15/20 [Last Taken Unknown] potassium chloride 20 mEq tablet,extended release(part/cryst) 40 meq PO TIDWM #90 tablet.sa 08/15/20 [Last Taken Unknown] Exam - Exam Vital Signs: Vital Signs - Last Taken Temp 36.7 C 08/28/20 20:46 Pulse 111 H 08/28/20 20:46 Resp 16 08/28/20 20:46 BP 138/66 08/28/20 20:46 Pulse Ox 95 08/28/20 20:46 Constitutional: Present: Alert, Oriented x3, No distress, Elderly, Thin and frail Eye Exam: bilateral eye: normal inspection, EOMI Neck: Present: non-tender, supple Respiratory: Present: lungs clear, normal breath sounds Cardiovascular/Chest: Present: regular rate, rhythm, systolic murmur - 2/6 Abdomen: Present: soft, nontender, nondistended Skin Exam: Present: normal color, warm/dry Lymphatic: Present: no adenopathy Appearance: Present: appropriate appearance, impaired insight Eye contact: Present: cooperative, good eye contact Thoughts: Present: normal thought pattern, normal mood /affect Diagnostic Studies: Abnormal Lab Results 08/28/20 08/28/20 08/28/20 Range/Units 16:35 16:35 17:06 WBC 12.4 H (4.0-10.5) K/mm3 Plt Count 503 H (150-450) K/mm3 Immature Gran # (Auto) 0.04 H (0.000-0.0310) K/mm3 Neutrophils % 78.5 H (42-75.0) % Lymphocytes % 14.8 L (20-51) % Neutrophils # 9.7 H (1.3-6.0) K/mm3 Potassium 5.1 H (3.4-4.6) mmol/L Anion Gap 14.8 H (6.8-13.8) mmol/L Random Glucose 153 H (70-110) mg/dL ALT 68 H (19-67) U/L Total Protein 8.8 H (6.2-8.2) gm/dL Urine Protein 15 H (NEGATIVE) mg/dL Laboratory Results WBC 12.4 K/mm3 (4.0-10.5) H 08/28/20 16:35 RBC 5.35 M/mm3 (4.2-5.4) 08/28/20 16:35 Hgb 15.0 gm/dL (12.5-16.0) 08/28/20 16:35 Hct 43.8 % (37.0-47.0) 08/28/20 16:35 MCV 81.9 fl (78-100) 08/28/20 16:35 MCH 28.0 pg (27-31) 08/28/20 16:35 MCHC 34.2 g/dl (32-36) 08/28/20 16:35 RDW 13.5 % (11.5-14.0) 08/28/20 16:35 Plt Count 503 K/mm3 (150-450) H 08/28/20 16:35 MPV 8.0 fl (8-12.5) 08/28/20 16:35 Immature Gran % (Auto) 0.30 % (0.001-0.429) 08/28/20 16:35 Immature Gran # (Auto) 0.04 K/mm3 (0.000-0.0310) H 08/28/20 16:35 Neutrophils % 78.5 % (42-75.0) H 08/28/20 16:35 Lymphocytes % 14.8 % (20-51) L 08/28/20 16:35 Monocytes % 5.6 % (0.0-9) 08/28/20 16:35 Eosinophils % 0.3 % (0.0-3.0) 08/28/20 16:35 Basophils % 0.5 % (0.0-1.0) 08/28/20 16:35 Nucleated RBC % 0.0 k/mm3 (0-1) 08/28/20 16:35 Neutrophils # 9.7 K/mm3 (1.3-6.0) H 08/28/20 16:35 Lymphocytes # 1.83 k/mm3 (1.5-3.5) 08/28/20 16:35 Monocytes # 0.7 k/mm3 (0.0-1.0) 08/28/20 16:35 Eosinophils # 0.0 k/mm3 (0.0-0.7) 08/28/20 16:35 Absolute Basophils 0.1 k/mm3 (0.0-0.1) 08/28/20 16:35 Sodium 133 mmol/L (132-142) 08/28/20 16:35 Plasma Sodium 134 mmol/L (130-142) 08/28/20 16:35 Potassium 5.1 mmol/L (3.4-4.6) H 08/28/20 16:35 Chloride 98 mmol/L (97-106) 08/28/20 16:35 Carbon Dioxide 25.3 mmol/L (24-32.6) 08/28/20 16:35 Anion Gap 14.8 mmol/L (6.8-13.8) H 08/28/20 16:35 BUN 14 mg/dL (3-23) 08/28/20 16:35 Creatinine 0.86 mg/dL (0.4-1.4) 08/28/20 16:35 Est GFR (Non-Af Amer) 67 mL/min (60-130) D 08/28/20 16:35 BUN/Creatinine Ratio 16.3 (9.0-21.6) 08/28/20 16:35 Random Glucose 153 mg/dL (70-110) H 08/28/20 16:35 Calcium 10.5 mg/dL (7.9-10.9) 08/28/20 16:35 Calcium Adj for Albumin 10.0 mg/dL (8.4-10.2) 08/28/20 16:35 Total Bilirubin 0.7 mg/dL (0.0-1.1) 08/28/20 16:35 AST 43 U/L (0-48) 08/28/20 16:35 ALT 68 U/L (19-67) H 08/28/20 16:35 Alkaline Phosphatase 110 U/L (50-170) 08/28/20 16:35 Troponin I Less than 0.017 ng/mL (0.00-0.10) 08/28/20 16:35 Total Protein 8.8 gm/dL (6.2-8.2) H 08/28/20 16:35 Albumin 4.2 gm/dl (3.4-5.0) 08/28/20 16:35 Urine Color Yellow 08/28/20 17:06 Urine Appearance Slightly cloudy (CLEAR) 08/28/20 17:06 Urine pH 7.0 pH (5.0-7.0) 08/28/20 17:06 Ur Specific [place] 1.020 SP.GR. (1.005-1.010) 08/28/20 17:06 Urine Protein 15 mg/dL (NEGATIVE) H 08/28/20 17:06 Urine Glucose (UA) Negative mg/dL (NEGATIVE) 08/28/20 17:06 Urine Ketones Negative mg/dL (NEGATIVE) 08/28/20 17:06 Urine Blood Negative /ul (NEGATIVE) 08/28/20 17:06 Urine Nitrate Negative (NEGATIVE) 08/28/20 17:06 Urine Bilirubin Negative mg/dl (NEGATIVE) 08/28/20 17:06 Urine Urobilinogen Normal EU/dl (NORMAL) 08/28/20 17:06 Ur Leukocyte Esterase Negative /ul (NEGATIVE) 08/28/20 17:06 Urine RBC None seen /hpf (0-5) 08/28/20 17:06 Urine WBC None seen /hpf (0-5) 08/28/20 17:06 Ur Epithelial Cells None seen /hpf (0-5) 08/28/20 17:06 Amorphous Sediment Trace (NONE-FEW) 08/28/20 17:06 Urine Bacteria Trace (NONE) 08/28/20 17:06 Urine Mucus Trace (NONE) 08/28/20 17:06 Urine Culture Comments No culture indicated 08/28/20 17:06 SARS-CoV-2 (PCR) Not detected (NotDetected) 08/28/20 18:00 Assessment/Plan - Narrative Narrative: Patient admitted under observation due to generalized weakness, hyperkalemia, and dementia. Due to her dementia and weakness patient is unable to care for herself and likely does need placement in nursing facility. Regular diet ordered. Chronic medications restarted. Repeat BMP in the morning to evaluate potassium. Currently holding potassium at this time. Patient is mildly tachycardic on examination but denies chest pain, shortness of breath. We will start her on metoprolol 12.5 mg twice daily. We will continue to monitor vital signs and her heart rate. Regular diet ordered. SCDs for DVT prophylaxis ordered. Nurse to call questions or concerns. - Assessment/Plan (1) Hyperkalemia Problem: Acute (2) Generalized weakness Problem: Chronic (3) Dehydration Problem: Acute (4) Gait instability Problem: Acute (5) Moderate dementia Problem: Chronic (6) Hypertension Problem: Chronic
[2020-08-29 06:43] LABS: Anion Gap 13.9 mmol/L (6.8-13.8); BUN/Creatinine Ratio 15.2 (9.0-21.6); Calcium * 9.4 mg/dL (7.9-10.9); Carbon Dioxide 27.9 mmol/L (24-32.6); Estimated Creat Clear 57.2
[2020-08-29 06:50] LABS: Potassium 2.8 mmol/L (3.4-4.6)
[2020-08-29] MEDS ORDERED: CALCIUM CARBONATE 500 MG TAB.CHEW PO PRN (08:27)
[2020-08-29] MEDS: METOPROLOL TARTRATE 25 MG TABLET PO SCH ×2 (08:45→20:06)
[2020-08-29] MEDS: POTASSIUM CHLORIDE 20 MEQ TABLET.SA PO SCH ×3 (08:45→16:52)
[2020-08-29] MEDS: ASPIRIN 81 MG TABLET.DR PO SCH (08:45)
[2020-08-29] MEDS: MAGNESIUM OXIDE 400 MG TABLET PO SCH ×2 (08:46→20:06)
[2020-08-29] MEDS: amLODIPine BESYLATE 10 MG TABLET PO SCH (08:46)
[2020-08-29] MEDS ORDERED: SPIRONOLACTONE 25 MG TABLET PO SCH (09:00)
--- NOTE | 2020-08-29 13:13 | PN ---
Subjective - Date and Time Seen Date: 08/29/20 Time: 08:00 Subjective Narrative: She feels like she was eating at home, but says this morning she ate some breakfast, but didn't feel like eating any more. She was unable to urinate and was straight cathed. Objective - Review of Systems Generalized/Overall Review: Reports: Weakness Respiratory: Denies: Shortness of Breath Cardiac: Denies: Edema Abdominal: Denies: Vomiting Genitourinary Symptoms: Reports: No Symptoms Reported - Vitals Vitals: Last Vital Signs Temp 36.6 C 08/29/20 11:22 Pulse 84 08/29/20 11:22 Resp 12 08/29/20 11:22 BP 132/66 08/29/20 11:22 Pulse Ox 94 08/29/20 11:22 - Abnormal Lab Findings Abnormal Lab Findings: Abnormal Lab Results 08/28/20 08/28/20 08/28/20 Range/Units 16:35 16:35 17:06 WBC 12.4 H (4.0-10.5) K/mm3 Plt Count 503 H (150-450) K/mm3 Immature Gran # (Auto) 0.04 H (0.000-0.0310) K/mm3 Neutrophils % 78.5 H (42-75.0) % Lymphocytes % 14.8 L (20-51) % Neutrophils # 9.7 H (1.3-6.0) K/mm3 Potassium 5.1 H (3.4-4.6) mmol/L Anion Gap 14.8 H (6.8-13.8) mmol/L Random Glucose 153 H (70-110) mg/dL ALT 68 H (19-67) U/L Total Protein 8.8 H (6.2-8.2) gm/dL Urine Protein 15 H (NEGATIVE) mg/dL 08/29/20 Range/Units 06:29 WBC (4.0-10.5) K/mm3 Plt Count (150-450) K/mm3 Immature Gran # (Auto) (0.000-0.0310) K/mm3 Neutrophils % (42-75.0) % Lymphocytes % (20-51) % Neutrophils # (1.3-6.0) K/mm3 Potassium 2.8 L D (3.4-4.6) mmol/L Anion Gap 13.9 H (6.8-13.8) mmol/L Random Glucose 141 H (70-110) mg/dL ALT (19-67) U/L Total Protein (6.2-8.2) gm/dL Urine Protein (NEGATIVE) mg/dL - Exam Constitutional: Present: Alert, Cooperative, No distress, Elderly Respiratory: Present: lungs clear, normal breath sounds Cardiovascular/Chest: Present: regular rate, rhythm Extremity: Absent: lower extremity edema Eye contact: Present: cooperative, good eye contact Assessment/Plan Plan Narrative: Last week, her called our office stating she was falling at home and not eating, and he could not care for her. The process was started to have her go to a assisted, but over the weekend, she came to the ED for similar troubles. Her K+ was initially 5.1, so her potassium was held, but it was 2.8 this morning, so her supplement was restarted. Will recheck magnesium and CMP this afternoon. She is having some urinary retention, and this is a new problem for her. No signs of infection on yesterday's UA. Can straight cath if she goes longer than 8 hours without urinating. As long as she is able to urinate, she is ok for DC to a facility. - Problems/Diagnosis (1) Hyperkalemia Problem: Resolved (2) Hypokalemia Problem: Acute (3) Generalized weakness Problem: Chronic (4) Gait instability Problem: Acute (5) Moderate dementia Problem: Chronic Qualifiers: Dementia behavioral disturbance: without behavioral disturbance Qualified Code(s): F03.90 - Unspecified dementia without behavioral disturbance
[2020-08-29] MEDS ORDERED: SENNOSIDES 8.6 MG TABLET PO PRN (14:04)
[2020-08-29 15:38] LABS: BUN/Creatinine Ratio 22.7 (9.0-21.6); Calcium * 9.6 mg/dL (7.9-10.9); Carbon Dioxide 26.1 mmol/L (24-32.6); Estimated Creat Clear 57.2; Magnesium 1.8 mg/dL (1.2-2.8); Potassium 4.1 mmol/L (3.4-4.6)
[2020-08-30 06:44] LABS: Albumin * 3.5 gm/dl (3.4-5.0); Anion Gap 11.7 mmol/L (6.8-13.8); Bilirubin, Total 0.7 mg/dL (0.0-1.1); Ca. Corrected For Albumin 9.6 mg/dL (8.4-10.2); Calcium * 9.5 mg/dL (7.9-10.9); Carbon Dioxide 26.8 mmol/L (24-32.6); Potassium 3.5 mmol/L (3.4-4.6); Total Protein 7.6 gm/dL (6.2-8.2)
[2020-08-30] MEDS ORDERED: BISACODYL 10 MG SUPP.RECT RC PRN (08:11)
[2020-08-30] MEDS: amLODIPine BESYLATE 10 MG TABLET PO SCH (08:30)
[2020-08-30] MEDS: METOPROLOL TARTRATE 25 MG TABLET PO SCH (08:31)
[2020-08-30] MEDS: POTASSIUM CHLORIDE 20 MEQ TABLET.SA PO SCH ×2 (08:31→12:34)
[2020-08-30] MEDS: ASPIRIN 81 MG TABLET.DR PO SCH (08:31)
[2020-08-30] MEDS: MAGNESIUM OXIDE 400 MG TABLET PO SCH (08:31)
[2020-08-30] MEDS ORDERED: POLYETHYLENE GLYCOL 3350 17 GM PACKET PO SCH (09:00)
--- NOTE | 2020-08-30 11:44 | DS ---
(1) Hyperkalemia Problem: Resolved (2) Hypokalemia Problem: Chronic (3) Generalized weakness Problem: Chronic (4) Gait instability Problem: Chronic (5) Neurogenic bladder Problem: Chronic (6) Moderate dementia Problem: Chronic Qualifiers: Dementia behavioral disturbance: without behavioral disturbance Qualified Code(s): F03.90 - Unspecified dementia without behavioral disturbance (7) Diabetes mellitus Problem: Acute Date of Discharge:: 08/30/20 Hospital Course: The week prior to admission, her called our office stating she was falling at home and not eating, and he could not care for her. The process was started to have her go to a long-term, but over the weekend, she came to the ED for similar troubles. Her K+ was initially 5.1, so her potassium was held, but it was 2.8 the following morning, so her supplement was restarted. Her potassium remained within normal limits the remainder of her stay. She had some urinary retention and constipation, so miralax and senna were started. She was incontinent of urine the day of discharge. OK to straight cath if she is unable to urinate. She was accepted at [facility], and will continue home health. Will continue checking BMP each week, since her potassium has been fluctuating the last few weeks. Procedures Performed: none Results and Findings: Lab Pending Results 08/28/20 16:35: WBC 12.4 H, RBC 5.35, Hgb 15.0, Hct 43.8, MCV 81.9, MCH 28.0, MCHC 34.2, RDW 13.5, Plt Count 503 H, MPV 8.0, Immature Gran % (Auto) 0.30, Imm ature Gran # (Auto) 0.04 H, Neutrophils % 78.5 H, Lymphocytes % 14.8 L, Monocytes % 5.6, Eosinophils % 0.3, Basophils % 0.5, Nucleated RBC % 0.0, Neutrophils # 9.7 H, Lymphocytes # 1.83, Monocytes # 0.7, Eosinophils # 0.0, Absolute Basophils 0.1 08/28/20 16:35: Sodium 133, Plasma Sodium 134, Potassium 5.1 H, Chloride 98, Carbon Dioxide 25.3, Anion Gap 14.8 H, BUN 14, Creatinine 0.86, Est GFR (Non-Af Amer) 67 D, BUN/Creatinine Ratio 16.3, Random Glucose 153 H, Calcium 10.5, Calcium Adj for Albumin 10.0, Total Bilirubin 0.7, AST 43, ALT 68 H, Alkaline Phosphatase 110, Troponin I Less than 0.017, Total Protein 8.8 H, Albumin 4.2 08/28/20 17:06: Urine Color Yellow, Urine Appearance Slightly cloudy, Urine pH 7.0, Ur Specific [place] 1.020, Urine Protein 15 H, Urine Glucose (UA) Negative, Urine Ketones Negative, Urine Blood Negative, Urine Nitrate Negative, Urine Bilirubin Negative, Urine Urobilinogen Normal, Ur Leukocyte Esterase Negative, Urine RBC None seen, Urine WBC None seen, Ur Epithelial Cells None seen, Amorphous Sediment Trace, Urine Bacteria Trace, Urine Mucus Trace, Urine Culture Comments No culture indicated 08/28/20 18:00: SARS-CoV-2 (PCR) Not detected 08/29/20 06:29: Sodium 137, Plasma Sodium 138, Potassium 2.8 L D, Chloride 98, Carbon Dioxide 27.9, Anion Gap 13.9 H, BUN 10, Creatinine 0.66, Est GFR (Non-Af Amer) 91 D, BUN/Creatinine Ratio 15.2, Random Glucose 141 H, Calcium 9.4 08/29/20 15:16: Sodium 132, Plasma Sodium 132, Potassium 4.1 D, Chloride 97, Carbon Dioxide 26.1, Anion Gap 13.0, BUN 15, Creatinine 0.66, Est GFR (Non-Af Amer) 91, BUN/Creatinine Ratio 22.7 H, Random Glucose 128 H, Calcium 9.6, Magnesium 1.8 08/30/20 06:15: Sodium 136, Plasma Sodium 137, Potassium 3.5, Chloride 101, Carbon Dioxide 26.8, Anion Gap 11.7, BUN 13, Creatinine 0.62, Est GFR (Non-Af Amer) 98, BUN/Creatinine Ratio 21.0, Random Glucose 150 H, Calcium 9.5, Calcium Adj for Albumin 9.6, Total Bilirubin 0.7, AST 50 H, ALT 94 H, Alkaline Phosphatase 103, Total Protein 7.6, Albumin 3.5 Discharge Location: [facility] Disposition: [facility] Health Agency: [facility] Home Health Condition: Fair Discharge Activity: Activity as tolerated Discharge Diet: General/regular food Referrals: Hayward,Ginette, DO [Primary Care Provider] - One Week (can be virtual visit) Additional Patient Instructions (free text): Has [facility] ongoing, please call and fax discharge orders to them. Please fax discharge information to [facility] as well. Prescriptions (Any new or edited meds): Bisacodyl [Dulcolax Suppository] 10 mg RC DAILY PRN #30 supp.rect PRN Reason: Constipation Transmission Status: Pending to [facility] #[id number] Polyethylene Glycol 3350 [Miralax] 17 gm PO DAILY PRN #1 bottle PRN Reason: Constipation Transmission Status: Pending to [facility] #[id number] Sennosides [Senokot] 8.6 mg PO BID PRN #1 bottle PRN Reason: Constipation Transmission Status: Pending to [facility] #[id number] Complete Home Medications List: Complete Home Medication List: aspirin 81 mg tablet,delayed release 81 mg PO DAILY 10/13/18 amlodipine 10 mg tablet See Rx Instructions .ROUTE .COMPLEX #30 tab 07/14/20 Calcium Carbonate [Tums] 500 mg PO QID PRN #1 bottle 08/15/20 Magnesium Oxide [Mag-Ox 400] 400 mg PO BID #60 tab 08/15/20 Spironolactone [Aldactone] 50 mg PO DAILY #30 tab 08/15/20 Bisacodyl [Dulcolax Suppository] 10 mg RC DAILY PRN #30 supp.rect 08/30/20 Metoprolol Tartrate [Lopressor] 12.5 mg PO Q12H tab 08/30/20 Polyethylene Glycol 3350 [Miralax] 17 gm PO DAILY PRN #1 bottle 08/30/20 Potassium Chloride [K-Dur] 40 meq PO TIDWM tablet.sa 08/30/20 Sennosides [Senokot] 8.6 mg PO BID PRN #1 bottle 08/30/20 Forms: Patient Portal Registration
[2020-08-30 13:38] VITALS: BP 146/65
== END 2020-08-30 13:45 | disposition home health service (06) ==
LOC: MS 16:18 → ER 16:18 → MS 19:40
PROVIDERS: ADMIT Family Medicine; ATTEND Family Medicine